=== PATIENT | female | born 1970 | race Two or more races ===

== ENCOUNTER 2016-12-24 14:13 | Inpatient (IN) | payer MEDICAID ==
[2016-12-24 14:13] VITALS: BMI 21.9
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
[2016-12-24] MEDS ORDERED: Vancomycin 1 g Inj ONE (15:51)
[2016-12-24] MEDS ORDERED: Piperacillin/Tazobact 4.5 GM in Sodium Chloride 0.9% 100 ML IVPB ONE (16:00)
[2016-12-24 16:01] LABS: ALB/GLOB RATIO 1.2 (1.0-2.1); ALKALINE PHOSPHATASE 94 U/L (38-126); ALT/SGPT 27 U/L (9-52); AST/SGOT 28 U/L (14-36); BILIRUBIN,TOTAL 0.5 mg/dl (0.2-1.3); BLOOD UREA NITROGEN 12 mg/dl (7-17); CALCIUM 9.5 mg/dL (8.4-10.2); CARBON DIOXIDE 19 mmol/L (22-30); CHLORIDE 106 mmol/L (98-107); GFR AFRICAN-AMERICAN > 60; GLUCOSE,RANDOM 168 mg/dL (65-105); POTASSIUM 3.7 MMOL/L (3.6-5.0); SODIUM 143 mmol/l (132-148); TOTAL PROTEIN 8.1 G/DL (6.3-8.2)
[2016-12-24 16:03] LABS: VENOUS BLOOD GAS BASE EXCESS 0.3 mmol/L (0.0-2.0); VENOUS BLOOD GAS PCO2 45 mmHg (40-60); VENOUS BLOOD PH 7.37 (7.32-7.43)
[2016-12-24 16:32] LABS: BASO % 0.4 % (0.0-2.0); EOS # 0.2 K/uL (0.0-0.7); EOS % 1.6 % (0.0-4.0); HEMATOCRIT 35.7 % (34.0-47.0); LYMPH # 1.6 K/uL (1.0-4.3); LYMPH % 16.9 % (20.0-40.0); MEAN CELL VOLUME 82.5 fl (81.0-99.0); MEAN CORPUSCULAR HGB CONC 31.5 g/dL (33.0-37.0); MEAN PLATELET VOLUME 9.7 fl (7.2-11.7); NEUT # 6.8 K/uL (1.8-7.0); NEUT % 71.1 % (50.0-75.0); NRBC % 0.1 % (0.0-0.0); RED CELL DISTRIBUTION WIDTH 17.3 % (11.5-14.5); WHITE BLOOD COUNT 9.5 K/uL (4.8-10.8)
[2016-12-24] MEDS ORDERED: Sodium Chloride 0.9% 1,000 ML IV STA (17:13)
--- NOTE | 2016-12-24 18:15 | RAD ---
HISTORY: r/o infiltrate COMPARISON: None available. TECHNIQUE: Chest, one view. FINDINGS: Examination limited by habitus. LUNGS: No focal consolidation. Please note that chest x-ray has limited sensitivity for the detection of pulmonary masses. PLEURA: No significant pleural effusion identified. No definite pneumothorax . CARDIOVASCULAR: Heart size appears within normal limits. OSSEOUS STRUCTURES: No acute osseous abnormality identified. VISUALIZED UPPER ABDOMEN: Unremarkable. OTHER FINDINGS: None. IMPRESSION: No acute findings.
[2016-12-24 22:05] LABS: PARTIAL THROMBOPLASTIN TIME 24.6 Seconds (25.6-37.1)
[2016-12-24] MEDS: Insulin Regular 100 units/ml SC SCH (23:15)
[2016-12-25] MEDS: Piperacillin/Tazobact 4.5 GM in Sodium Chloride 0.9% 100 ML IVPB SCH ×3 (00:48→16:30)
[2016-12-25] MEDS ORDERED: HYDROmorphone 1 mg/ml ISec IVP PRN (00:55)
[2016-12-25] MEDS: HYDROmorphone 0.5 mg/0.5 ml ISec IVP PRN ×2 (01:11→23:01)
[2016-12-25] MEDS ORDERED: Dextrose 5%/0.45% NS 1,000 ML IV SCH (06:00)
[2016-12-25] MEDS: Insulin Regular 100 units/ml SC SCH ×4 (06:08→22:46)
[2016-12-25 06:34] LABS: HEMATOCRIT 31.7 % (34.0-47.0); MEAN CELL VOLUME 81.7 fl (81.0-99.0); MEAN CORPUSCULAR HEMOGLOBIN 25.8 pg (27.0-31.0); MEAN CORPUSCULAR HGB CONC 31.6 g/dL (33.0-37.0); RED CELL DISTRIBUTION WIDTH 17.1 % (11.5-14.5); WHITE BLOOD COUNT 6.3 K/uL (4.8-10.8)
[2016-12-25 06:36] LABS: ALB/GLOB RATIO 1.1 (1.0-2.1); ALKALINE PHOSPHATASE 72 U/L (38-126); ALT/SGPT 25 U/L (9-52); AST/SGOT 22 U/L (14-36); BILIRUBIN,TOTAL 0.6 mg/dl (0.2-1.3); BLOOD UREA NITROGEN 13 mg/dl (7-17); CALCIUM 8.9 mg/dL (8.4-10.2); CARBON DIOXIDE 21 mmol/L (22-30); CHLORIDE 108 mmol/L (98-107); CHOLESTEROL 113 mg/dL (0-199); GFR AFRICAN-AMERICAN > 60; GLUCOSE,RANDOM 133 mg/dL (65-105); POTASSIUM 4.1 MMOL/L (3.6-5.0); SODIUM 143 mmol/l (132-148); TOTAL PROTEIN 6.7 G/DL (6.3-8.2)
[2016-12-25 07:04] LABS: THYROID STIMULATING HORMONE 2.01 mIU/ML (0.46-4.68)
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
--- NOTE | 2016-12-25 07:44 | CP.PCM.PN ---
Subjective - Date & Time of Evaluation Date of Evaluation: 12/25/16 Time of Evaluation: 07:39 - Subjective Subjective: Podiatry Progress Note - Dr. Ibarra 46 year old female patient seen at bedside for pre-operative evaluation of bilateral lower extremity wound debridement with incision and drainage by Dr. Ibarra today. Patient reports decreased pain to her legs today, well-controlled by pain medication. Patient is aware she is to go to the OR this AM. NPO status confirmed. Patient denies N/V/F/D/C/SOB. Offers no other pedal complaints at this time. Objective - Vital Signs/Intake and Output Vital Signs (last 24 hours): Temp Pulse Resp BP Pulse Ox 97.8 F 83 19 99/58 L 100 12/25/16 00:51 12/25/16 00:51 12/25/16 00:51 12/25/16 00:51 12/25/16 00:51 - Medications Medications: Current Medications Hydromorphone HCl (Dilaudid) 1 mg IVP Q4 PRN PRN Reason: pain 1-10 Last Admin: 12/25/16 01:11 Dose: 1 mg Vancomycin HCl 1 gm/ Sodium (Chloride) 250 mls @ 166.667 mls/hr IVPB Q12 GRANT PRN Reason: Protocol Piperacillin Sod/Tazobactam (Sod 4.5 gm/ Sodium Chloride) 100 mls @ 100 mls/hr IVPB Q8 GRANT PRN Reason: Protocol Last Admin: 12/25/16 00:48 Dose: 100 mls/hr Dextrose/Sodium Chloride (Dextrose 5%-0.45% Ns 500 Ml) 1,000 mls @ 80 mls/hr IV .[id number] GRANT Stop: 12/26/16 00:56 Last Admin: 12/25/16 06:08 Dose: 80 mls/hr Ibuprofen (Motrin Tab) 600 mg PO Q8H PRN PRN Reason: Pain, moderate (4-7) Influenza Virus Vaccine (Afluria (Pf)(18yr & Older)) 0.5 ml IM .ONCE ONE Stop: 12/25/16 09:01 Insulin Human Regular (Humulin R) 0 units SC ACCU-CHECK GRANT PRN Reason: Protocol Last Admin: 12/25/16 06:08 Dose: Not Given Pantoprazole Sodium (Protonix Inj) 40 mg IVP DAILY GRANT - Labs Labs: 12/25/16 05:20 12/25/16 05:20 PT 13.5 Seconds (9.8-13.1) H 12/24/16 21:45 INR 1.2 (0.9-1.2) 12/24/16 21:45 APTT 24.6 Seconds (25.6-37.1) L 12/24/16 21:45 - Constitutional Appears: Well, Non-toxic, No Acute Distress - Extremities Exam Additional comments: Dressing to bilateral lower extremities appear clean/dry/intact with no strikethrough noted. - Neurological Exam Neurological Exam: Alert, Awake, Oriented x3 - Psychiatric Exam Psychiatric exam: Normal Affect, Normal Mood Assessment and Plan - Assessment and Plan (Free Text) Assessment: 46 year old female PMHx DM with bilateral leg ulcerations and abscesses Plan: Patient seen and examined at bedside Discussed with attending, Dr. Ibarra Labs and vitals reviewed = WBC 6.3, afebrile NPO status was confirmed Pt has exhausted all conservative treatment at this time and is opting for surgical intervention Pt was explained procedure and post-operative course All pt's questions were answered to satisfaction No guarantees were made Pt understands all risks, benefits and complications of procedure Podiatry will continue to follow patient while in house
[2016-12-25] MEDS ORDERED: Bupivacaine 0.5% Inj(30mL) IJ ONE (07:57)
[2016-12-25] MEDS ORDERED: Lidocaine 1% Inj (20ml) IJ ONE (07:57)
[2016-12-25] MEDS ORDERED: ceFAZolin 1 GM in Sodium Chloride 0.9% 100 ML IVPB ONE (07:57)
--- NOTE | 2016-12-25 08:58 | RAD ---
PROCEDURE: Radiographs of the right tibia and fibula. HISTORY: soft tissue infection COMPARISON: None available. TECHNIQUE: Frontal and lateral views obtained. FINDINGS: BONES: No fracture or destructive lesion. JOINT SPACES: Unremarkable. OTHER FINDINGS: Calf and lower extremity edema, diffuse also identified overlying the plantar aspect of the visualized foot. IMPRESSION: Soft tissue swelling without acute articular or osseous abnormality.
[2016-12-25] MEDS ORDERED: Bupivacaine 0.5% Inj(30mL) ONE (09:00)
[2016-12-25] MEDS ORDERED: Lidocaine 1% Inj (20ml) ONE (09:00)
[2016-12-25] MEDS ORDERED: Influenza Vaccine 18yr & older 0.5 ML/45 MCG SYR IM ONE (09:00)
--- NOTE | 2016-12-25 09:12 | CP.PCM.PCO ---
Progress - Time Time: 09:11 - Re-Evaluation Re-evaluation Note: 12/25/16 09:11 Patient seen and examined at bedside. Denies any chest pain , SOB, dizziness. Denies any cardiac history. Patient is resting comfortably. - Labs and imaging have been reviewed, patient is low risk for I and D and wound debridement of bilateral legs. Gen :NAD CVS: S1s2 heard no S3 S$ no MRG Resp: CTAB , no W/R/R PLASTER MIXER: motor and sensory grossly intact FH: Not significant 12/25/16 09:12
[2016-12-25] MEDS ORDERED: Sodium Chloride 0.9% 250 ML IV ONE (09:35)
[2016-12-25] MEDS ORDERED: Lactated Ringer's 1,000 ML IV ONE (09:35)
[2016-12-25] MEDS ORDERED: Propofol 10 mg/ml Inj (20 ML) ONE (09:47)
--- NOTE | 2016-12-25 09:53 | RAD ---
PROCEDURE: Radiographs of the left tibia and fibula. HISTORY: soft tissue infection COMPARISON: December 24, 2016. . TECHNIQUE: Frontal and lateral views obtained. FINDINGS: BONES: No fracture or destructive lesion. JOINT SPACES: Degenerative changes incompletely visualize left knee. OTHER FINDINGS: Soft tissue swelling about calf primarily medially. No underlying osseous abnormalities. IMPRESSION: Soft tissue swelling without acute articular or osseous abnormality.
[2016-12-25] MEDS ORDERED: Dexamethasone 4 mg/1 ml ONE (10:22)
--- NOTE | 2016-12-25 10:58 | PCM.SURG1 ---
Surgeon's Initial Post Op Note - Surgeon's Notes Surgeon: Dr. Ibarra Knife Glazer: Mahad Wilson PGY1 Type of Anesthesia: General LMA Anesthesia Administered By: Dr. Banuelos Pre-Operative Diagnosis: Bilateral leg wounds and abscesses Operative Findings: See operative report. materials: 03/19" plain packing. injectables: none Post-Operative Diagnosis: Same as above Operation Performed: Bilateral leg wound debridement with incision and drainage , excisional biopsy Specimen/Specimens Removed: pathology: 1) biopsy skin ulcer right lower leg, 2) biopsy skin ulcer left leg, 3) abscess right leg, 4) abscess right leg, 5) abscess L leg, 6) abscess L leg Estimated Blood Loss: EBL {In ML}: 7 Blood Products Given: N/A Drains Used: No Drains Post-Op Condition: Good Date of Surgery/Procedure: 12/25/16 Time of Surgery/Procedure: 10:00
[2016-12-25] MEDS ORDERED: Oxycodone/Acetaminophen 5/325 mg Tab PO PRN (11:00)
[2016-12-25] MEDS ORDERED: HYDROmorphone 0.5 mg/0.5 ml ISec ONE (11:03)
[2016-12-25] MEDS ORDERED: HYDROmorphone 0.5 mg/0.5 ml ISec IVP PRN (11:05)
--- NOTE | 2016-12-25 11:05 | RAD ---
PROCEDURE: Radiographs of the Left Forearm HISTORY: soft tissue infection COMPARISON: None available. TECHNIQUE: Frontal and lateral views obtained. FINDINGS: BONES: No fracture or destructive lesion. JOINT SPACES: Unremarkable. OTHER FINDINGS: None. IMPRESSION: Unremarkable radiographs of the left forearm.
--- NOTE | 2016-12-25 12:01 | CARD ---
APPROVED REPORT EKG Measurement Heart [id number] <Conclusion> Normal sinus rhythm Normal ECG
--- NOTE | 2016-12-25 18:30 | CP.PCM.HP ---
History of Present Illness - History of Present Illness History of Present Illness: 46 YO F w/ PMH of DM and upper and lower extremity wounds since 2016. Patient was sent to the ER by Dr. Rico ([facility]) for evaluation of wounds with worsening pin and drainage x 1 week. PMH: DM, HTN F/H:Denies Allergies : Denies Present on Admission - Present on Admission Any Indicators Present on Admission: Yes Past Patient History - Past Medical History & Family History Past Medical History?: Yes - Past Social History Smoking Status: Never Smoked - CARDIAC Hx Cardiac Disorders: No Hx Hypertension: No (States she doesnt have HTN) - PULMONARY Hx Respiratory Disorders: No - NEUROLOGICAL Hx Neurological Disorder: No - HEENT Hx HEENT Problems: Yes Other/Comment: [place] - RENAL Hx Chronic Kidney Disease: No - ENDOCRINE/METABOLIC Hx Endocrine Disorders: Yes Hx Diabetes Mellitus Type 2: Yes - HEMATOLOGICAL/ONCOLOGICAL Hx Blood Disorders: No - INTEGUMENTARY Hx Dermatological Problems: Yes Other/Comment: Chronic wounds to upper and lower extremities - MUSCULOSKELETAL/RHEUMATOLOGICAL Hx Musculoskeletal Disorders: No Hx Falls: No - GASTROINTESTINAL Hx Gastrointestinal Disorders: No - GENITOURINARY/GYNECOLOGICAL Hx Genitourinary Disorders: No - PSYCHIATRIC Hx Psychophysiologic Disorder: No Hx Substance Use: No - SURGICAL HISTORY Hx Surgeries: Yes Other/Comment: [place] - ANESTHESIA Hx Anesthesia: Yes Hx Anesthesia Reactions: No Hx Malignant Hyperthermia: No Meds Allergies/Adverse Reactions: Allergies Allergy/AdvReac Type Severity Reaction Status Date / Time No Known Allergies Allergy Verified 12/24/16 14:18 Physical Exam - Constitutional Appears: No Acute Distress - Head Exam Head Exam: NORMAL INSPECTION - Eye Exam Eye Exam: Normal appearance - ENT Exam ENT Exam: Mucous Membranes Moist - Respiratory Exam Respiratory Exam: Clear to Auscultation Bilateral, NORMAL BREATHING PATTERN - Cardiovascular Exam Cardiovascular Exam: REGULAR RHYTHM, +S1, +S2 - GI/Abdominal Exam GI & Abdominal Exam: Normal Bowel Sounds, Soft. absent: Tenderness - Extremities Exam Additional comments: LUE: 5 cm open drainage ulveration LLE: Ulceration to medial fib. - - Neurological Exam Neurological exam: Alert, CN II-XII Intact, Normal Gait Results - Vital Signs Recent Vital Signs: Last Vital Signs Temp 97.7 F 12/25/16 15:30 Pulse 77 12/25/16 15:30 Resp 18 12/25/16 15:30 BP 103/65 12/25/16 15:30 Pulse Ox 98 12/25/16 15:30 - Labs Result Diagrams: 12/25/16 05:20 12/25/16 05:20 Labs: Laboratory Results - last 24 hr 12/24/16 12/24/16 12/25/16 21:22 21:45 05:20 WBC 6.3 RBC 3.87 Hgb 10.0 L Hct 31.7 L MCV 81.7 MCH 25.8 L MCHC 31.6 L RDW 17.1 H Plt Count 198 ESR 53 H PT 13.5 H INR 1.2 APTT 24.6 L Sodium Potassium Chloride Carbon Dioxide Anion Gap BUN Creatinine Est GFR ( Amer) Est GFR (Non-Af Amer) POC Glucose (mg/dL) 211 H Random Glucose Hemoglobin A1c Calcium Total Bilirubin AST ALT Alkaline Phosphatase Total Protein Albumin Globulin Albumin/Globulin Ratio Triglycerides Cholesterol LDL Cholesterol Direct HDL Cholesterol TSH 3rd Generation 12/25/16 12/25/16 12/25/16 05:20 05:20 05:49 WBC RBC Hgb Hct MCV MCH MCHC RDW Plt Count ESR PT INR APTT Sodium 143 Potassium 4.1 Chloride 108 H Carbon Dioxide 21 L Anion Gap 18 BUN 13 Creatinine 0.7 Est GFR ( Amer) > 60 Est GFR (Non-Af Amer) > 60 POC Glucose (mg/dL) 140 H Random Glucose 133 H Hemoglobin A1c 8.9 H Calcium 8.9 Total Bilirubin 0.6 AST 22 ALT 25 Alkaline Phosphatase 72 Total Protein 6.7 Albumin 3.5 Globulin 3.2 Albumin/Globulin Ratio 1.1 Triglycerides 83 Cholesterol 113 LDL Cholesterol Direct 56 HDL Cholesterol 32 TSH 3rd Generation 2.01 12/25/16 12/25/16 11:04 16:03 WBC RBC Hgb Hct MCV MCH MCHC RDW Plt Count ESR PT INR APTT Sodium Potassium Chloride Carbon Dioxide Anion Gap BUN Creatinine Est GFR ( Amer) Est GFR (Non-Af Amer) POC Glucose (mg/dL) 116 H 269 H Random Glucose Hemoglobin A1c Calcium Total Bilirubin AST ALT Alkaline Phosphatase Total Protein Albumin Globulin Albumin/Globulin Ratio Triglycerides Cholesterol LDL Cholesterol Direct HDL Cholesterol TSH 3rd Generation Assessment & Plan - Assessment and Plan (Free Text) Assessment: 1) B/L leg ulceration and abscess - Patient has failed conservative management - Patient scheduled for surgery this morning: Wound debridement - ID on board - F/U with lower extremity arterial doppler
--- NOTE | 2016-12-25 18:35 | CP.PCM.CON ---
History of Present Illness - History of Present Illness History of Present Illness: 46 YO F w/ PMH of DM and upper and lower extremity wounds since 2016. Patient was sent to the ER by Dr. Rico ([facility]) for evaluation of wounds with worsening pin and drainage x 1 week. PMH: DM, HTN F/H:Denies Allergies : Denies Review of Systems - Constitutional Constitutional: As Per HPI - EENT Eyes: absent: As Per HPI, Blind Spots, Blurred Vision, Change in Vision, Decreased Night Vision, Diplopia, Discharge, Dry Eye, Exophthalmos, Floaters, Irritation, Itchy Eyes, Loss of Peripheral Vision, Pain, Photophobia, Requires Corrective Lenses, Sees Flashes, Spots in Vision, Tunnel Vision, Other Visual Disturbances, Loss of Vision, Other Ears: absent: As Per HPI, Decreased Hearing, Ear Discharge, Ear Pain, Tinnitus, Abnormal Hearing, Disequilibrium, Dizziness, Other Nose/Mouth/Throat: absent: As Per HPI, Epistaxis, Nasal Congestion, Nasal Discharge, Nasal Obstruction, Nasal Trauma, Nose Pain, Post Nasal Drip, Sinus Pain, Sinus Pressure, Bleeding Gums, Change in Voice, Dental Pain, Dry Mouth, Dysphagia, Halitosis, Hoarsness, Lip Swelling, Mouth Lesions, Mouth Pain, Odynophagia, Sore Throat, Throat Swelling, Tongue Swelling, Facial Pain, Neck Pain, Neck Mass, Other - Breasts Breasts: absent: As Per HPI, Change in Shape, Mass, Pain, Nipple Discharge, Nipple Inversion, Skin Changes, Swelling, Other - Cardiovascular Cardiovascular: absent: As Per HPI, Acrocyanosis, Chest Pain, Chest Pain at Rest , Chest Pain with Activity, Claudication, Diaphoresis, Dyspnea, Dyspnea on Exertion, Edema, Irregular Heart Rhythm, Pain Radiating to Arm/Neck/Jaw, Leg Edema, Leg Ulcers, Lightheadedness, Orthopnea, Palpitations, Paroxysmal Nocturnal Dyspnea, Pedal Edema, Radiating Pain, Rapid Heart Rate, Slow Heart Rate, Syncope, Other - Respiratory Respiratory: absent: As Per HPI, Cough, Dyspnea, Hemoptysis, Dyspnea on Exertion , Wheezing, Snoring, Stridor, Pain on Inspiration, Chest Congestion, Excessive Mucous Production, Change in Mucous Color, Pain with Coughing, Other - Gastrointestinal Gastrointestinal: absent: As Per HPI, Abdominal Pain, Belching, Bloating, Change in Bowel Habits, Change in Stool Character, Coffee Ground Emesis, Constipation, Cramping, Diarrhea, Dyspepsia, Dysphagia, Early Satiety, Excessive Flatus, Fecal Incontinence, Heartburn, Hematemesis, Hematochezia, Loose Stools, Melena, Nausea, Odynophagia, Temesmus, Vomiting, Other - Genitourinary Genitourinary: absent: As Per HPI, Change in Urinary Stream, Difficulty Urinating, Dysuria, Flank Pain, Hematuria, Pyuria, Nocturia, Urinary Incontinence, Urinary Frequency, Urinary Hesitance, Urinary Urgency, Voiding Freq/Small Amts, Freq UTI, Hx Renal/Bladder Calculi, Hx /Renal Surgery, Bladder Distension, Other - Reproductive: Female Reproductive:Female: absent: As Per HPI, Amenorrhea, Amenorrhea/ Control, Currently Menstual, Cycle <21 Days, Cycle >35 Days, Cycle Variable, Menses 1-7 Days, Menses >/= 8 Days, Menses Variable, Cycle > 4 Weeks Between, No Menses for 6 Months, Heavy Menses, Light Menses, Normal Menses, Spotting Between Cycles , S/P Hysterectomy, Menopausal, Post Menopausal, Premenarche, Abnormal Vaginal Bleeding, Dysmenorrhea, Dyspareunia, Genital Lesions, Genital Pruritis, Pelvic Pain, Prolapse Symptoms, Sexual Dysfunction, Vaginal Discharge, Vaginal Dryness , Vaginal Odor, Vaginal Pruritis, Other - Menstruation Menstruation: absent: As Per HPI, Amenorrhea, Amenorrhea/ Control, Currently Menstual, Cycle <21 Days, Cycle >35 Days, Cycle Variable, Menses 1-7 Days, Menses >/= 8 Days, Menses Variable, Cycle > 4 Weeks Between, No Menses for 6 Months, Heavy Menses, Light Menses, Normal Menses, Spotting Between Cycles , S/P Hysterectomy, Menopausal, Post Menopausal, Premenarche, Abnormal Vaginal Bleeding, Dysmenorrhea, Other - Musculoskeletal Musculoskeletal: As Per HPI - Integumentary Integumentary: As Per HPI - Neurological Neurological: absent: As Per HPI, Abnormal Gait, Abnormal Hearing, Abnormal Movements, Abnormal Speech, Behavioral Changes, Burning Sensations, Confusion, Convulsions, Disequilibrium, Dizziness, Numbness, Focal Weakness, Frequent Falls , Headaches, Lack of Coordination, Loss of Vision, Memory Loss, Paresthesias, Radicular Pain, Restless Legs, Sensory Deficit, Syncope, Tingling, Tremor, Vertigo, Weakness, Other Visual Disturbances, Other - Psychiatric Psychiatric: absent: As Per HPI, Abnormal Sleep Pattern, Anhedonia, Anxiety, Auditory Hallucinations, Behavioral Changes, Change in Appetite, Change in Libido, Confusion, Depression, Difficulty Concentrating, Hallucinations, Homicidal Ideation, Hopelessness, Irritability, Memory Loss, Mood Swings, Panic Attacks, Paranoia, Suicidal Ideation, Visual Hallucinations, Tactile Hallucinations, Other - Endocrine Endocrine: absent: As Per HPI, Change in Body Appearance, Change in Libido, Cold Intolorance, Deepening of Voice, Excessive Sweating, Fatigue, Flushing, Heat Intolorance, Increase in Ring/Shoe/Hat Size, Palpitations, Polydipsia, Polyphagia, Polyuria, Other - Hematologic/Lymphatic Hematologic: absent: As Per HPI, Easy Bleeding, Easy Bruising, Lymphadenopathy, Other Past Patient History - Past Medical History & Family History Past Medical History?: Yes - Past Social History Smoking Status: Never Smoked - CARDIAC Hx Cardiac Disorders: No Hx Hypertension: No (States she doesnt have HTN) - PULMONARY Hx Respiratory Disorders: No - NEUROLOGICAL Hx Neurological Disorder: No - HEENT Hx HEENT Problems: Yes Other/Comment: [place] - RENAL Hx Chronic Kidney Disease: No - ENDOCRINE/METABOLIC Hx Endocrine Disorders: Yes Hx Diabetes Mellitus Type 2: Yes - HEMATOLOGICAL/ONCOLOGICAL Hx Blood Disorders: No - INTEGUMENTARY Hx Dermatological Problems: Yes Other/Comment: Chronic wounds to upper and lower extremities - MUSCULOSKELETAL/RHEUMATOLOGICAL Hx Musculoskeletal Disorders: No Hx Falls: No - GASTROINTESTINAL Hx Gastrointestinal Disorders: No - GENITOURINARY/GYNECOLOGICAL Hx Genitourinary Disorders: No - PSYCHIATRIC Hx Psychophysiologic Disorder: No Hx Substance Use: No - SURGICAL HISTORY Hx Surgeries: Yes Other/Comment: Eye surgery [place] - ANESTHESIA Hx Anesthesia: Yes Hx Anesthesia Reactions: No Hx Malignant Hyperthermia: No Meds Allergies/Adverse Reactions: Allergies Allergy/AdvReac Type Severity Reaction Status Date / Time No Known Allergies Allergy Verified 12/24/16 14:18 - Medications Medications: Current Medications Hydromorphone HCl (Dilaudid) 1 mg IVP Q4 PRN PRN Reason: pain 1-10 Last Admin: 12/25/16 01:11 Dose: 1 mg Vancomycin HCl 1 gm/ Sodium (Chloride) 250 mls @ 166.667 mls/hr IVPB Q12 [facility] PRN Reason: Protocol Last Admin: 12/25/16 09:19 Dose: 166.667 mls/hr Piperacillin Sod/Tazobactam (Sod 4.5 gm/ Sodium Chloride) 100 mls @ 100 mls/hr IVPB Q8 [facility] PRN Reason: Protocol Last Admin: 12/25/16 16:30 Dose: 100 mls/hr Dextrose/Sodium Chloride (Dextrose 5%-0.45% Ns 500 Ml) 1,000 mls @ 80 mls/hr IV .[id number] [facility] Stop: 12/26/16 00:56 Last Admin: 12/25/16 06:08 Dose: 80 mls/hr Dextrose (Dextrose 5% In Water) 500 mls @ 0 mls/hr IV .Q0M [facility] PRN Reason: Per Protocol Stop: 12/26/16 07:58 Lactated Ringer's (Lactated Ringer's) 1,000 mls @ 125 mls/hr IV .Q8H [facility] Ibuprofen (Motrin Tab) 600 mg PO Q8H PRN PRN Reason: Pain, moderate (4-7) Ibuprofen (Motrin Tab) 800 mg PO Q8 PRN PRN Reason: Pain, Mild (1-3) Insulin Human Regular (Humulin R) 0 units SC ACCU-CHECK [facility] PRN Reason: Protocol Last Admin: 12/25/16 16:35 Dose: 6 units Oxycodone/Acetaminophen (Percocet 5/325 Mg Tab) 1 tab PO Q6 PRN PRN Reason: Pain, severe (8-10) Stop: 12/28/16 11:01 Pantoprazole Sodium (Protonix Inj) 40 mg IVP DAILY [facility] Last Admin: 12/25/16 09:20 Dose: 40 mg Physical Exam - Constitutional Appears: Non-toxic, Chronically Ill - Head Exam Head Exam: NORMOCEPHALIC - Eye Exam Eye Exam: PERRL - ENT Exam ENT Exam: Mucous Membranes Dry - Neck Exam Neck exam: Negative for: Lymphadenopathy - Respiratory Exam Respiratory Exam: Decreased Breath Sounds, Clear to Auscultation Bilateral - Cardiovascular Exam Cardiovascular Exam: REGULAR RHYTHM, +S1, +S2 - GI/Abdominal Exam GI & Abdominal Exam: Diminished Bowel Sounds - Rectal Exam Rectal Exam: Deferred - Exam Exam: NORMAL INSPECTION - Extremities Exam Extremities exam: Negative for: pedal edema - Back Exam Back exam: absent: CVA tenderness (L), CVA tenderness (R) - Neurological Exam Neurological exam: Alert, CN II-XII Intact, Oriented x3, Reflexes Normal - Psychiatric Exam Psychiatric exam: Normal Affect - Skin Skin Exam: Dry Additional comments: several large flat circular lesions on upper / lower extremities Results - Vital Signs Recent Vital Signs: Last Vital Signs Temp 97.7 F 12/25/16 15:30 Pulse 77 12/25/16 15:30 Resp 18 12/25/16 15:30 BP 103/65 12/25/16 15:30 Pulse Ox 98 12/25/16 15:30 - Labs Result Diagrams: 12/26/16 05:25 12/26/16 05:25 Labs: Laboratory Results - last 24 hr 12/24/16 12/24/16 12/25/16 21:22 21:45 05:20 WBC 6.3 RBC 3.87 Hgb 10.0 L Hct 31.7 L MCV 81.7 MCH 25.8 L MCHC 31.6 L RDW 17.1 H Plt Count 198 ESR 53 H PT 13.5 H INR 1.2 APTT 24.6 L Sodium Potassium Chloride Carbon Dioxide Anion Gap BUN Creatinine Est GFR ( Amer) Est GFR (Non-Af Amer) POC Glucose (mg/dL) 211 H Random Glucose Hemoglobin A1c Calcium Total Bilirubin AST ALT Alkaline Phosphatase Total Protein Albumin Globulin Albumin/Globulin Ratio Triglycerides Cholesterol LDL Cholesterol Direct HDL Cholesterol TSH 3rd Generation 12/25/16 12/25/16 12/25/16 05:20 05:20 05:49 WBC RBC Hgb Hct MCV MCH MCHC RDW Plt Count ESR PT INR APTT Sodium 143 Potassium 4.1 Chloride 108 H Carbon Dioxide 21 L Anion Gap 18 BUN 13 Creatinine 0.7 Est GFR ( Amer) > 60 Est GFR (Non-Af Amer) > 60 POC Glucose (mg/dL) 140 H Random Glucose 133 H Hemoglobin A1c 8.9 H Calcium 8.9 Total Bilirubin 0.6 AST 22 ALT 25 Alkaline Phosphatase 72 Total Protein 6.7 Albumin 3.5 Globulin 3.2 Albumin/Globulin Ratio 1.1 Triglycerides 83 Cholesterol 113 LDL Cholesterol Direct 56 HDL Cholesterol 32 TSH 3rd Generation 2.01 10/12/17 10/12/17 11:04 16:03 WBC RBC Hgb Hct MCV MCH MCHC RDW Plt Count ESR PT INR APTT Sodium Potassium Chloride Carbon Dioxide Anion Gap BUN Creatinine Est GFR ( Amer) Est GFR (Non-Af Amer) POC Glucose (mg/dL) 116 H 269 H Random Glucose Hemoglobin A1c Calcium Total Bilirubin AST ALT Alkaline Phosphatase Total Protein Albumin Globulin Albumin/Globulin Ratio Triglycerides Cholesterol LDL Cholesterol Direct HDL Cholesterol TSH 3rd Generation Assessment & Plan (1) Abscess of left lower extremity Status: Acute (2) Cellulitis Status: Acute - Assessment and Plan (Free Text) Assessment: 46 yo [place] with multiple skin lesions etiology to be determined needs skin bx await HIV screen consider screen for Cutaneous T cell lymphoma / HTLV I II
[2016-12-25] MEDS: Lactated Ringer's 1,000 ML IV SCH (20:35)
[2016-12-26] MEDS: Piperacillin/Tazobact 4.5 GM in Sodium Chloride 0.9% 100 ML IVPB SCH ×3 (00:06→20:02)
[2016-12-26] MEDS: Lactated Ringer's 1,000 ML IV SCH (03:41)
--- NOTE | 2016-12-26 05:27 | CP.PCM.CON ---
History of Present Illness - History of Present Illness History of Present Illness: General Surgery Consult Re: LUE ulceration and abscess HPI: 46F presented to ED for worsening extremity ulcerations/wounds with new swelling, pain and drainage x 1 week. Podiatry had been following as outpt. Pt says ulcers never go away they just spread. Present since 2016. Says they start as a blister and after erupting in 4-5 days they can spread. She currently notes an area on the upper L arm that she thinks is getting ready to form another blister. No other complaints. Pt is worried there may be a bug or allergy in her home that is causing this. Denies any family history of cancers or autoimmune diseases. Patient stated she has been compliant with diabetes medications and has been taking Doxycycline for the last week. PMH: HTN, DM, skin ulcerations on extremities PSH: LE Debridement, L knee surgery, SH: No tobacco or drug use. Occasional EtOH All: NKDA Meds: See MAR Review of Systems - Review of Systems All systems: reviewed and no additional remarkable complaints except (as per HPI ) Past Patient History - Past Medical History & Family History Past Medical History?: Yes - Past Social History Smoking Status: Never Smoked - CARDIAC Hx Cardiac Disorders: No Hx Hypertension: No (States she doesnt have HTN) - PULMONARY Hx Respiratory Disorders: No - NEUROLOGICAL Hx Neurological Disorder: No - HEENT Hx HEENT Problems: Yes Other/Comment: [place] - RENAL Hx Chronic Kidney Disease: No - ENDOCRINE/METABOLIC Hx Endocrine Disorders: Yes Hx Diabetes Mellitus Type 2: Yes - HEMATOLOGICAL/ONCOLOGICAL Hx Blood Disorders: No - INTEGUMENTARY Hx Dermatological Problems: Yes Other/Comment: Chronic wounds to upper and lower extremities - MUSCULOSKELETAL/RHEUMATOLOGICAL Hx Musculoskeletal Disorders: No Hx Falls: No - GASTROINTESTINAL Hx Gastrointestinal Disorders: No - GENITOURINARY/GYNECOLOGICAL Hx Genitourinary Disorders: No - PSYCHIATRIC Hx Psychophysiologic Disorder: No Hx Substance Use: No - SURGICAL HISTORY Hx Surgeries: Yes Other/Comment: [place] - ANESTHESIA Hx Anesthesia: Yes Hx Anesthesia Reactions: No Hx Malignant Hyperthermia: No Meds Allergies/Adverse Reactions: Allergies Allergy/AdvReac Type Severity Reaction Status Date / Time No Known Allergies Allergy Verified 12/24/16 14:18 - Medications Medications: Current Medications Hydromorphone HCl (Dilaudid) 1 mg IVP Q4 PRN PRN Reason: pain 1-10 Last Admin: 12/25/16 23:01 Dose: 1 mg Vancomycin HCl 1 gm/ Sodium (Chloride) 250 mls @ 166.667 mls/hr IVPB Q12 [facility] PRN Reason: Protocol Last Admin: 12/25/16 20:31 Dose: 166.667 mls/hr Piperacillin Sod/Tazobactam (Sod 4.5 gm/ Sodium Chloride) 100 mls @ 100 mls/hr IVPB Q8 [facility] PRN Reason: Protocol Last Admin: 12/26/16 00:06 Dose: 100 mls/hr Dextrose (Dextrose 5% In Water) 500 mls @ 0 mls/hr IV .Q0M [facility] PRN Reason: Per Protocol Stop: 12/26/16 07:58 Lactated Ringer's (Lactated Ringer's) 1,000 mls @ 125 mls/hr IV .Q8H [facility] Last Admin: 12/26/16 03:41 Dose: Not Given Ibuprofen (Motrin Tab) 600 mg PO Q8H PRN PRN Reason: Pain, moderate (4-7) Ibuprofen (Motrin Tab) 800 mg PO Q8 PRN PRN Reason: Pain, Mild (1-3) Insulin Human Regular (Humulin R) 0 units SC ACCU-CHECK [facility] PRN Reason: Protocol Last Admin: 12/25/16 22:46 Dose: Not Given Oxycodone/Acetaminophen (Percocet 5/325 Mg Tab) 1 tab PO Q6 PRN PRN Reason: Pain, severe (8-10) Stop: 12/28/16 11:01 Pantoprazole Sodium (Protonix Inj) 40 mg IVP DAILY [facility] Last Admin: 12/25/16 09:20 Dose: 40 mg Physical Exam - Constitutional Appears: Non-toxic, No Acute Distress - Head Exam Head Exam: ATRAUMATIC, NORMOCEPHALIC - Eye Exam Eye Exam: EOMI. absent: Scleral icterus - ENT Exam ENT Exam: Mucous Membranes Moist Additional comments: trachea midline - Neck Exam Neck exam: Positive for: Full Rom - Respiratory Exam Respiratory Exam: NORMAL BREATHING PATTERN. absent: Respiratory Distress - Cardiovascular Exam Cardiovascular Exam: RRR, +S1, +S2 - GI/Abdominal Exam GI & Abdominal Exam: Soft. absent: Distended, Tenderness - Rectal Exam Rectal Exam: Deferred - Extremities Exam Additional comments: Podiatry post op dressings in place on B/L LE LUE with forearm bleeding, raw ulceration with what appears to be rolled edges. TTP. No fluctuance noted, induration at base. On lateral upper arm, there is a 1cm bump with darkened skin and TTP. pt notes this to be an early sign that another ulceration is going to erupt in that area. - Back Exam Back exam: absent: CVA tenderness (L), CVA tenderness (R) - Neurological Exam Neurological exam: Alert, Oriented x3 - Psychiatric Exam Psychiatric exam: Normal Affect, Normal Mood - Skin Skin Exam: Dry, Warm Results - Vital Signs Recent Vital Signs: Last Vital Signs Temp 97.9 F 12/26/16 04:30 Pulse 66 12/26/16 04:30 Resp 18 12/26/16 04:30 BP 110/68 12/26/16 04:30 Pulse Ox 98 12/26/16 04:30 - Labs Result Diagrams: 12/25/16 05:20 12/25/16 05:20 Labs: Laboratory Results - last 24 hr 12/25/16 12/25/16 12/25/16 05:20 05:20 05:20 WBC 6.3 RBC 3.87 Hgb 10.0 L Hct 31.7 L MCV 81.7 MCH 25.8 L MCHC 31.6 L RDW 17.1 H Plt Count 198 ESR 53 H Sodium 143 Potassium 4.1 Chloride 108 H Carbon Dioxide 21 L Anion Gap 18 BUN 13 Creatinine 0.7 Est GFR ( Amer) > 60 Est GFR (Non-Af Amer) > 60 POC Glucose (mg/dL) Random Glucose 133 H Hemoglobin A1c 8.9 H Calcium 8.9 Total Bilirubin 0.6 AST 22 ALT 25 Alkaline Phosphatase 72 Total Protein 6.7 Albumin 3.5 Globulin 3.2 Albumin/Globulin Ratio 1.1 Triglycerides 83 Cholesterol 113 LDL Cholesterol Direct 56 HDL Cholesterol 32 TSH 3rd Generation 2.01 12/25/16 12/25/16 12/25/16 05:49 11:04 16:03 WBC RBC Hgb Hct MCV MCH MCHC RDW Plt Count ESR Sodium Potassium Chloride Carbon Dioxide Anion Gap BUN Creatinine Est GFR ( Amer) Est GFR (Non-Af Amer) POC Glucose (mg/dL) 140 H 116 H 269 H Random Glucose Hemoglobin A1c Calcium Total Bilirubin AST ALT Alkaline Phosphatase Total Protein Albumin Globulin Albumin/Globulin Ratio Triglycerides Cholesterol LDL Cholesterol Direct HDL Cholesterol TSH 3rd Generation 12/25/16 21:29 WBC RBC Hgb Hct MCV MCH MCHC RDW Plt Count ESR Sodium Potassium Chloride Carbon Dioxide Anion Gap BUN Creatinine Est GFR ( Amer) Est GFR (Non-Af Amer) POC Glucose (mg/dL) 236 H Random Glucose Hemoglobin A1c Calcium Total Bilirubin AST ALT Alkaline Phosphatase Total Protein Albumin Globulin Albumin/Globulin Ratio Triglycerides Cholesterol LDL Cholesterol Direct HDL Cholesterol TSH 3rd Generation Assessment & Plan - Assessment and Plan (Free Text) Assessment: 46F with skin ulcerations Plan: Follow up podiatry biopsy results Wound care to see. Currently using adaptic, 4x4s and kerlex to cover LUE ulcer R/O autoimmune or infectious causes Will D/W Dr. Betito Cordova PGY4
--- NOTE | 2016-12-26 05:37 | CP.PCM.PN ---
Subjective - Date & Time of Evaluation Date of Evaluation: 12/26/16 Time of Evaluation: 05:35 - Subjective Subjective: Podiatry Progress Note - Dr. Ibarra 46 year old female patient seen at bedside POD#1 bilateral leg wound debridement with incision and drainage, excisional biopsy (DOS: 12/25/16). Patient denies any acute events overnight. Patient reports mild pain to her legs bilaterally, however states she feels great relief from the drainage of pus from her legs. Patient denies N/V/F/D/C/SOB. Offers no other pedal complaints at this time. Objective - Vital Signs/Intake and Output Vital Signs (last 24 hours): Temp Pulse Resp BP Pulse Ox 97.9 F 66 18 110/68 98 12/26/16 04:30 12/26/16 04:30 12/26/16 04:30 12/26/16 04:30 12/26/16 04:30 Intake and Output: 12/25/16 12/26/16 18:59 06:59 Intake Total 850 Balance 850 - Medications Medications: Current Medications Hydromorphone HCl (Dilaudid) 1 mg IVP Q4 PRN PRN Reason: pain 1-10 Last Admin: 12/25/16 23:01 Dose: 1 mg Vancomycin HCl 1 gm/ Sodium (Chloride) 250 mls @ 166.667 mls/hr IVPB Q12 [facility] PRN Reason: Protocol Last Admin: 12/25/16 20:31 Dose: 166.667 mls/hr Piperacillin Sod/Tazobactam (Sod 4.5 gm/ Sodium Chloride) 100 mls @ 100 mls/hr IVPB Q8 [facility] PRN Reason: Protocol Last Admin: 12/26/16 00:06 Dose: 100 mls/hr Dextrose (Dextrose 5% In Water) 500 mls @ 0 mls/hr IV .Q0M [facility] PRN Reason: Per Protocol Stop: 12/26/16 07:58 Lactated Ringer's (Lactated Ringer's) 1,000 mls @ 125 mls/hr IV .Q8H [facility] Last Admin: 12/26/16 03:41 Dose: Not Given Ibuprofen (Motrin Tab) 600 mg PO Q8H PRN PRN Reason: Pain, moderate (4-7) Ibuprofen (Motrin Tab) 800 mg PO Q8 PRN PRN Reason: Pain, Mild (1-3) Insulin Human Regular (Humulin R) 0 units SC ACCU-CHECK [facility] PRN Reason: Protocol Last Admin: 12/25/16 22:46 Dose: Not Given Oxycodone/Acetaminophen (Percocet 5/325 Mg Tab) 1 tab PO Q6 PRN PRN Reason: Pain, severe (8-10) Stop: 12/28/16 11:01 Pantoprazole Sodium (Protonix Inj) 40 mg IVP DAILY [facility] Last Admin: 12/25/16 09:20 Dose: 40 mg - Labs Labs: 12/25/16 05:20 12/25/16 05:20 PT 13.5 Seconds (9.8-13.1) H 12/24/16 21:45 INR 1.2 (0.9-1.2) 12/24/16 21:45 APTT 24.6 Seconds (25.6-37.1) L 12/24/16 21:45 - Constitutional Appears: Well, Non-toxic, No Acute Distress - Extremities Exam Additional comments: VASC: DP and PT pulses weakly palpable 1/4 b/l. CFT <3 seconds to all digits b/ l. Temperature gradient warm to warm b/l. No increase in warmth noted to drained abscesses located on 1) posterior right calf, 2) anterior aspect of distal half right leg, and 3) distal half of left leg. NEURO: Gross sensation intact bilaterally. DERM: Multiple abscesses with surrounding erythema noted to legs bilaterally, drained and packed with 1/4" plain packing strip - 1) posterior right calf; 2) anterior aspect of distal half right leg, and 3) distal half of right leg. Hypergranular ulceration measuring approximately 6 cm x 4 cm noted to the medial aspect of right calf with beefy red base and surrounding mixed hyper- and hypo-pigmentation periwound. Hypergranular circular ulceration noted to proximal-anterior aspect of right leg measuring approximately 2.5 x 2.5 cm with beefy red base and surroudning hypopigmented/erythematous periwound. ORTHO: Pain on palpation ulcerations and abscesses. - Neurological Exam Neurological Exam: Alert, Awake, Oriented x3 - Psychiatric Exam Psychiatric exam: Normal Affect, Normal Mood Assessment and Plan - Assessment and Plan (Free Text) Assessment: 46 year old female patient POD#1 bilateral leg wound debridement with incision and drainage, excisional biopsy (DOS: 12/25/16) Plan: Patient seen and evaluated at bedside Discussed with attending, Dr. Ibarra Labs and vitals reviewed = afebrile, WBC 6.8, ESR 53, A1c 8.9 - Rheum Arthritis panel = negative - RPR = nonreactive - Hep B Antigen = negative - Hep C Antibody = negative - HIV1Ab = nonreactive Bilateral lower extremity dressed with DSD - packing left in place WBAT bilateral LE LLE XR reviewed: Negative for soft tissue emphysema, negative for acute fracture RLE XR reviewed: Negative for soft tissue emphysema, negative for acute fracture F/U Rheumatology consult, recs appreciated R/O autoimmune vasculitis, malignancy Awaiting RLE & LLE biospsy skin ulcer reports Awaiting RLE & LLE abscess wound culture reports Continue abx per ID - Vancomycin, Zosyn; recs appreciated Continue pain mgmt Podiatry will continue to follow patient while in house
[2016-12-26] MEDS: HYDROmorphone 0.5 mg/0.5 ml ISec IVP PRN (05:39)
[2016-12-26 06:32] LABS: HEMATOCRIT 31.3 % (34.0-47.0); MEAN CELL VOLUME 80.9 fl (81.0-99.0); MEAN CORPUSCULAR HEMOGLOBIN 25.9 pg (27.0-31.0); RED CELL DISTRIBUTION WIDTH 16.9 % (11.5-14.5); WHITE BLOOD COUNT 6.8 K/uL (4.8-10.8)
[2016-12-26 06:57] LABS: BLOOD UREA NITROGEN 14 mg/dl (7-17); CALCIUM 9.5 mg/dL (8.4-10.2); CARBON DIOXIDE 21 mmol/L (22-30); CHLORIDE 106 mmol/L (98-107); GFR AFRICAN-AMERICAN > 60; GLUCOSE,RANDOM 149 mg/dL (65-105); POTASSIUM 4.3 MMOL/L (3.6-5.0); SODIUM 141 mmol/l (132-148)
[2016-12-26] MEDS: Insulin Regular 100 units/ml SC SCH ×4 (07:00→22:36)
[2016-12-26] MEDS: Silver Sulfadiazine 1% CREAM (50 gm) TOP SCH ×2 (09:32→18:11)
--- NOTE | 2016-12-26 12:12 | CP.PCM.PN ---
Subjective - Date & Time of Evaluation Date of Evaluation: 12/26/16 Time of Evaluation: 08:30 - Subjective Subjective: Patient seen at bedside doing well. Patient tolerated the procedure well. Denies any overnight events. Will follow up on pathology reports Objective - Vital Signs/Intake and Output Vital Signs (last 24 hours): Temp Pulse Resp BP Pulse Ox 97.9 F 70 20 107/69 99 12/26/16 08:15 12/26/16 08:15 12/26/16 08:15 12/26/16 08:15 12/26/16 08:15 - Medications Medications: Current Medications Hydromorphone HCl (Dilaudid) 1 mg IVP Q4 PRN PRN Reason: pain 1-10 Last Admin: 12/26/16 05:39 Dose: 1 mg Vancomycin HCl 1 gm/ Sodium (Chloride) 250 mls @ 166.667 mls/hr IVPB Q12 [facility] PRN Reason: Protocol Last Admin: 12/26/16 09:31 Dose: 166.667 mls/hr Piperacillin Sod/Tazobactam (Sod 4.5 gm/ Sodium Chloride) 100 mls @ 100 mls/hr IVPB Q8 [facility] PRN Reason: Protocol Last Admin: 12/26/16 09:30 Dose: 100 mls/hr Lactated Ringer's (Lactated Ringer's) 1,000 mls @ 125 mls/hr IV .Q8H [facility] Last Admin: 12/26/16 03:41 Dose: Not Given Ibuprofen (Motrin Tab) 600 mg PO Q8H PRN PRN Reason: Pain, moderate (4-7) Ibuprofen (Motrin Tab) 800 mg PO Q8 PRN PRN Reason: Pain, Mild (1-3) Insulin Human Regular (Humulin R) 0 units SC ACCU-CHECK [facility] PRN Reason: Protocol Last Admin: 12/26/16 07:00 Dose: Not Given Oxycodone/Acetaminophen (Percocet 5/325 Mg Tab) 1 tab PO Q6 PRN PRN Reason: Pain, severe (8-10) Stop: 12/28/16 11:01 Pantoprazole Sodium (Protonix Inj) 40 mg IVP DAILY [facility] Last Admin: 12/26/16 09:29 Dose: 40 mg Silver Sulfadiazine (Silvadene 1% 50 Gm) 1 applic TOP BID [facility] Last Admin: 12/26/16 09:32 Dose: Not Given - Labs Labs: 12/26/16 05:25 12/26/16 05:25 PT 13.5 Seconds (9.8-13.1) H 12/24/16 21:45 INR 1.2 (0.9-1.2) 12/24/16 21:45 APTT 24.6 Seconds (25.6-37.1) L 12/24/16 21:45 Assessment and Plan - Assessment and Plan (Free Text) Assessment: 1) B/L leg ulceration and abscess - POD #1 Bilateral leg wound debridement w/ incision and drainage, excisional biopsy. - Spoke with Surg: Swabs for AFB and fungal cultures have been taken will follow up with results - F/U with Biopsy results - Rhematology on board - ID on board - Will call for dermatology consult 2)DM2 - Metformin 500 BID - sliding scale
--- NOTE | 2016-12-26 13:06 | CP.PCM.PN ---
Subjective - Date & Time of Evaluation Date of Evaluation: 12/26/16 Time of Evaluation: 08:00 - Subjective Subjective: wound cultures pending no fever Objective - Vital Signs/Intake and Output Vital Signs (last 24 hours): Temp Pulse Resp BP Pulse Ox 98.4 F 77 20 105/69 98 12/26/16 12:09 12/26/16 12:09 12/26/16 12:09 12/26/16 12:09 12/26/16 12:09 - Medications Medications: Current Medications Hydromorphone HCl (Dilaudid) 1 mg IVP Q4 PRN PRN Reason: pain 1-10 Last Admin: 12/26/16 05:39 Dose: 1 mg Vancomycin HCl 1 gm/ Sodium (Chloride) 250 mls @ 166.667 mls/hr IVPB Q12 [facility] PRN Reason: Protocol Last Admin: 12/26/16 09:31 Dose: 166.667 mls/hr Piperacillin Sod/Tazobactam (Sod 4.5 gm/ Sodium Chloride) 100 mls @ 100 mls/hr IVPB Q8 [facility] PRN Reason: Protocol Last Admin: 12/26/16 09:30 Dose: 100 mls/hr Lactated Ringer's (Lactated Ringer's) 1,000 mls @ 125 mls/hr IV .Q8H [facility] Last Admin: 12/26/16 03:41 Dose: Not Given Ibuprofen (Motrin Tab) 600 mg PO Q8H PRN PRN Reason: Pain, moderate (4-7) Ibuprofen (Motrin Tab) 800 mg PO Q8 PRN PRN Reason: Pain, Mild (1-3) Insulin Human Regular (Humulin R) 0 units SC ACCU-CHECK COUNT [facility]CLUDES [facility] PRN Reason: Protocol Last Admin: 12/26/16 07:00 Dose: Not Given Oxycodone/Acetaminophen (Percocet 5/325 Mg Tab) 1 tab PO Q6 PRN PRN Reason: Pain, severe (8-10) Stop: 12/28/16 11:01 Pantoprazole Sodium (Protonix Inj) 40 mg IVP DAILY [facility] Last Admin: 12/26/16 09:29 Dose: 40 mg Silver Sulfadiazine (Silvadene 1% 50 Gm) 1 applic TOP BID [facility]CLUD[facility] Last Admin: 12/26/16 09:32 Dose: Not Given - Labs Labs: 12/26/16 05:25 12/26/16 05:25 PT 13.5 Seconds (9.8-13.1) H 12/24/16 21:45 INR 1.2 (0.9-1.2) 12/24/16 21:45 APTT 24.6 Seconds (25.6-37.1) L 12/24/16 21:45 - Constitutional Appears: Non-toxic - Head Exam Head Exam: NORMOCEPHALIC - Eye Exam Eye Exam: absent: Scleral icterus - ENT Exam ENT Exam: Mucous Membranes Dry - Neck Exam Neck Exam: absent: Lymphadenopathy - Respiratory Exam Respiratory Exam: Decreased Breath Sounds - Cardiovascular Exam Cardiovascular Exam: REGULAR RHYTHM - GI/Abdominal Exam GI & Abdominal Exam: Soft - Rectal Exam Rectal Exam: Deferred - Exam Exam: NORMAL INSPECTION Assessment and Plan (1) Abscess of left lower extremity Status: Acute (2) Cellulitis Status: Acute - Assessment and Plan (Free Text) Assessment: r/o autoimmune vasculitis, malignancy , infection Dr Richards , Dr Monson, Dr Falcon to evaluate
--- NOTE | 2016-12-26 14:47 | OP ---
PROCEDURE DATE: 12/25/2016 SURGEON: Dr. Juan Diego Ibarra DPM SQL REPORT ANALYST: Dr. Mahad Wilson DPM, PGY1 ANESTHESIA ADMINISTERED BY: Dr. Vin MD TYPE OF ANESTHESIA: General LMA. PREOPERATIVE DIAGNOSES: Bilateral proximal leg ulcerations and bilateral distal leg abscesses. POSTOPERATIVE DIAGNOSES: Bilateral proximal leg ulcerations and bilateral distal leg abscesses. NAME OF PROCEDURE: 1. Excisional biopsy of right leg ulceration. 2. Incision and drainage of right leg abscess with irrigation. 3. Excisional biopsy of the left leg ulceration. 4. Incision and drainage of the left leg abscess with irrigation. INDICATIONS: The patient is a 46-year-old female with the above diagnosis. The patient has exhausted all conservative treatment at this time and now requires surgical intervention. The patient signed the consent after careful explanation of risks, benefits, complications and alternatives for surgical procedure. No guarantees were given or implied. N.p.o. status was confirmed prior to taking the patient to the OR. PREPARATION: The patient was brought into the operating room and placed on the operating room table in a supine position. Time-out was performed for identification of the correct patient and procedure. After induction of general LMA sedation, both lower extremities were prepped and draped in normal sterile manner and the procedure began. No tourniquet was used during the procedure. DESCRIPTION OF PROCEDURE: Procedure #1: Attention was first turned to the proximal right lower leg where an approximately 2.5 x 2.5 cm ulceration was noted on the medial anterior calf with hypergranular periwound skin and red beefy granular base. Using a #15 blade, an excisional biopsy was taken from the ulcer base down to the level of subcutaneous tissue measuring roughly 0.5 x 0.3 cm and sent to Pathology for evaluation. The wound was then dressed with Xeroform gauze, Kerlix, and Coban. Procedure #2. Attention was then turned to the lateral aspect of the patient's right leg where a hyperpigmented area of fluctuant skin consistent with an underlying abscess was identified. Using a fresh #15 blade, an approximately 4 cm incision was made down to the level of the subcutaneous tissue. Upon incision, approximately 5 mL of white milky purulent drainage was expressed from the site. Two cultures were taken from the site for microbiological evaluation. The surgical site was milked until no further purulent drainage was expressed. A pulse lavage was then inserted into the ulcer site and the area was flushed with 1500 mL of bacitracin laced normal saline. One quarter-inch plain packing was inserted into the incision site and the surgical site was dressed with Xeroform gauze, Kerlix, and Coban. Procedure #3. Attention was then turned to the proximal left lower leg where an approximately 6 x 4 cm ulceration was noted on the anterior chirinos with hypergranular periwound skin and red beefy granular base. Three separate punch biopsies were taken from the ulcer base and sent to Pathology for evaluation. The wound was then dressed with Xeroform gauze, Kerlix, and Coban. Procedure #4. Attention was then turned to the lateral aspect of the patient's left distal leg where a hyperpigmented area of fluctuant skin consistent with an underlying abscess was identified. Using a fresh #15 blade, an approximately 4 cm longitudinal incision was made down to below the level of the subcutaneous tissue. Upon incision, approximately 2 mL of white milky purulent drainage was expressed from the site. Two cultures were taken from the site for microbiological evaluation. The surgical site was milked until no further purulent drainage was expressed. While milking the patient's leg, approximately 5 mL of necrotic adipose tissue was exuded from the leg through the incision site. Three separate samples of the tissue were collected and sent to the Pathology for examination. A pulse lavage was then inserted into the incision site and the area was flushed with 1500 mL of bacitracin laced normal saline. Quarter-inch plain packing was inserted into the incision site and the surgical site was dressed with Xeroform gauze, Kerlix, and Coban. POSTOPERATIVE CONDITION: The patient tolerated the anesthesia and procedure well and was escorted to the recovery room with vital signs stable and neurovascular status intact to both lower extremities. The patient is instructed to remain nonweightbearing to both lower extremities. Podiatry will continue to follow the patient while in-house. Mahad Wilson DPM Juan Diego Ibarra DPM JANIS
[2016-12-26] MEDS: Enoxaparin 40 mg Syringe SC SCH (18:10)
[2016-12-27] MEDS: Piperacillin/Tazobact 4.5 GM in Sodium Chloride 0.9% 100 ML IVPB SCH ×3 (00:28→18:27)
--- NOTE | 2016-12-27 09:33 | CP.PCM.PN ---
Subjective - Date & Time of Evaluation Date of Evaluation: 12/27/16 Time of Evaluation: 07:40 - Subjective Subjective: Patient seen and examined at bedside this AM. NAEO. C/o persistent pain in the legs well controlled on current regimen. No fevers or chills Objective - Vital Signs/Intake and Output Vital Signs (last 24 hours): Temp Pulse Resp BP Pulse Ox 98.4 F 71 19 107/72 98 12/27/16 07:58 12/27/16 07:58 12/27/16 07:58 12/27/16 07:58 12/27/16 07:58 - Medications Medications: Current Medications Enoxaparin Sodium (Lovenox) 40 mg SC DAILY [facility] PRN Reason: Protocol Last Admin: 12/26/16 18:10 Dose: 40 mg Hydromorphone HCl (Dilaudid) 1 mg IVP Q4 PRN PRN Reason: pain 1-10 Last Admin: 12/26/16 05:39 Dose: 1 mg Vancomycin HCl 1 gm/ Sodium (Chloride) 250 mls @ 166.667 mls/hr IVPB Q12 [facility] PRN Reason: Protocol Last Admin: 12/26/16 20:32 Dose: 166.667 mls/hr Piperacillin Sod/Tazobactam (Sod 4.5 gm/ Sodium Chloride) 100 mls @ 100 mls/hr IVPB Q8 [facility] PRN Reason: Protocol Last Admin: 12/27/16 00:28 Dose: 100 mls/hr Ibuprofen (Motrin Tab) 600 mg PO Q8H PRN PRN Reason: Pain, moderate (4-7) Ibuprofen (Motrin Tab) 800 mg PO Q8 PRN PRN Reason: Pain, Mild (1-3) Last Admin: 12/27/16 08:27 Dose: 800 mg Insulin Human Regular (Humulin R) 0 units SC ACCU-CHECK [facility] PRN Reason: Protocol Last Admin: 12/26/16 22:36 Dose: Not Given Metformin HCl (Glucophage) 500 mg PO BIDWM [facility] Last Admin: 12/27/16 08:28 Dose: 500 mg Oxycodone/Acetaminophen (Percocet 5/325 Mg Tab) 1 tab PO Q6 PRN PRN Reason: Pain, severe (8-10) Stop: 12/28/16 11:01 Pantoprazole Sodium (Protonix Inj) 40 mg IVP DAILY [facility] Last Admin: 12/26/16 09:29 Dose: 40 mg Silver Sulfadiazine (Silvadene 1% 50 Gm) 1 applic TOP BID [facility] Last Admin: 12/26/16 18:11 Dose: 1 applic - Labs Labs: 12/26/16 05:25 12/26/16 05:25 PT 13.5 Seconds (9.8-13.1) H 12/24/16 21:45 INR 1.2 (0.9-1.2) 12/24/16 21:45 APTT 24.6 Seconds (25.6-37.1) L 12/24/16 21:45 - Constitutional Appears: Non-toxic, No Acute Distress - Head Exam Head Exam: ATRAUMATIC, NORMOCEPHALIC - Eye Exam Eye Exam: Normal appearance. absent: Conjunctival injection, Scleral icterus - ENT Exam ENT Exam: Mucous Membranes Moist, Normal Oropharynx - Respiratory Exam Respiratory Exam: NORMAL BREATHING PATTERN. absent: Accessory Muscle Use, Respiratory Distress - Cardiovascular Exam Cardiovascular Exam: RRR - GI/Abdominal Exam GI & Abdominal Exam: Soft. absent: Distended - Extremities Exam Additional comments: BL lower legs covered in dressings placed by podiatry. Left upper extremity with dressing covering forearm lesion c/d/i. Raised lesion on left upper arm approximately 3cm in diameter unchanged. - Neurological Exam Neurological Exam: Alert, Awake, Oriented x3 - Psychiatric Exam Psychiatric exam: Normal Affect, Normal Mood - Skin Skin Exam: Normal Color, Warm Assessment and Plan - Assessment and Plan (Free Text) Assessment: 46F with multiple chronic granulomatous skin lesions Plan: Follow up podiatry biopsy results Follow up fungal, AFB, and bacterial cultures Follow up ID recs Wound care per Podiatry and wound care nurse R/O autoimmune or infectious causes if LE biopsies non-conclusive, will consider biopsies of the left forearm lesion Seen and discussed with Dr. Betito Hernandez, PGY2
[2016-12-27] MEDS: Insulin Regular 100 units/ml SC SCH ×4 (10:15→22:00)
[2016-12-27] MEDS: Enoxaparin 40 mg Syringe SC SCH (10:16)
[2016-12-27] MEDS: Silver Sulfadiazine 1% CREAM (50 gm) TOP SCH ×2 (10:17→18:36)
--- NOTE | 2016-12-27 15:04 | CP.PCM.PN ---
Subjective - Date & Time of Evaluation Date of Evaluation: 12/27/16 Time of Evaluation: 15:02 - Subjective Subjective: Patient feels a lot better. Noted uncontrolled DM 2 Has no fever Has no chest pain or SOB. Objective - Vital Signs/Intake and Output Vital Signs (last 24 hours): Temp Pulse Resp BP Pulse Ox 98.4 F 71 19 107/72 98 12/27/16 07:58 12/27/16 07:58 12/27/16 07:58 12/27/16 07:58 12/27/16 07:58 - Medications Medications: Current Medications Enoxaparin Sodium (Lovenox) 40 mg SC DAILY [facility] PRN Reason: Protocol Last Admin: 12/27/16 10:16 Dose: 40 mg Hydromorphone HCl (Dilaudid) 1 mg IVP Q4 PRN PRN Reason: pain 1-10 Last Admin: 12/26/16 05:39 Dose: 1 mg Vancomycin HCl 1 gm/ Sodium (Chloride) 250 mls @ 166.667 mls/hr IVPB Q12 [facility] PRN Reason: Protocol Last Admin: 12/27/16 10:18 Dose: 166.667 mls/hr Piperacillin Sod/Tazobactam (Sod 4.5 gm/ Sodium Chloride) 100 mls @ 100 mls/hr IVPB Q8 [facility] PRN Reason: Protocol Last Admin: 12/27/16 10:18 Dose: 100 mls/hr Ibuprofen (Motrin Tab) 600 mg PO Q8H PRN PRN Reason: Pain, moderate (4-7) Ibuprofen (Motrin Tab) 800 mg PO Q8 PRN PRN Reason: Pain, Mild (1-3) Last Admin: 12/27/16 08:27 Dose: 800 mg Insulin Human Regular (Humulin R) 0 units SC ACCU-CHECK [facility] PRN Reason: Protocol Last Admin: 12/27/16 13:16 Dose: 6 units Metformin HCl (Glucophage) 1,000 mg PO BIDWM [facility] Oxycodone/Acetaminophen (Percocet 5/325 Mg Tab) 1 tab PO Q6 PRN PRN Reason: Pain, severe (8-10) Stop: 12/28/16 11:01 Pantoprazole Sodium (Protonix Inj) 40 mg IVP DAILY [facility] Last Admin: 12/27/16 10:17 Dose: 40 mg Pioglitazone HCl (Actos) 30 mg PO DAILY [facility] Silver Sulfadiazine (Silvadene 1% 50 Gm) 1 applic TOP BID [facility] Last Admin: 12/27/16 10:17 Dose: 1 applic - Labs Labs: 12/26/16 05:25 12/26/16 05:25 PT 13.5 Seconds (9.8-13.1) H 12/24/16 21:45 INR 1.2 (0.9-1.2) 12/24/16 21:45 APTT 24.6 Seconds (25.6-37.1) L 12/24/16 21:45 - Head Exam Head Exam: NORMAL INSPECTION - Eye Exam Eye Exam: Normal appearance - ENT Exam ENT Exam: Mucous Membranes Moist - Respiratory Exam Respiratory Exam: Clear to Ausculation Bilateral - Cardiovascular Exam Cardiovascular Exam: REGULAR RHYTHM - GI/Abdominal Exam GI & Abdominal Exam: Normal Bowel Sounds - Neurological Exam Neurological Exam: Awake, Oriented x3 - Psychiatric Exam Psychiatric exam: Normal Mood Assessment and Plan (1) Diabetes mellitus type 2 in nonobese Status: Acute (2) Cellulitis Status: Acute (3) Abscess of left lower extremity Status: Acute - Assessment and Plan (Free Text) Plan: Increase metformin to 1000 bid add januvia 100 mg daily and pioglitazone 30 mg daily low salt low fat 2000 claritza diet recheck labs next week.
--- NOTE | 2016-12-27 16:32 | CP.PCM.PN ---
Subjective - Date & Time of Evaluation Date of Evaluation: 12/27/16 Time of Evaluation: 09:45 - Subjective Subjective: Podiatry Progress Note - Dr. Ibarra 46 year old female patient seen at bedside POD#2 bilateral leg wound debridement with incision and drainage, excisional biopsy (DOS: 12/25/16). Patient seen resting comfortably at time of visit. Patient denies any acute events overnight. Patient states she is feeling better, admits to mild pain however well-controlled. Patient states she has been able to ambulate without any issues. Patient denies N/V/F/D/C/SOB/calf pain. No other pedal complaints at this time. Objective - Vital Signs/Intake and Output Vital Signs (last 24 hours): Temp Pulse Resp BP Pulse Ox 98.4 F 71 19 107/72 98 12/27/16 07:58 12/27/16 07:58 12/27/16 07:58 12/27/16 07:58 12/27/16 07:58 - Medications Medications: Current Medications Enoxaparin Sodium (Lovenox) 40 mg SC DAILY [facility] PRN Reason: Protocol Last Admin: 12/27/16 10:16 Dose: 40 mg Hydromorphone HCl (Dilaudid) 1 mg IVP Q4 PRN PRN Reason: pain 1-10 Last Admin: 12/26/16 05:39 Dose: 1 mg Vancomycin HCl 1 gm/ Sodium (Chloride) 250 mls @ 166.667 mls/hr IVPB Q12 [facility] PRN Reason: Protocol Last Admin: 12/27/16 10:18 Dose: 166.667 mls/hr Piperacillin Sod/Tazobactam (Sod 4.5 gm/ Sodium Chloride) 100 mls @ 100 mls/hr IVPB Q8 [facility] PRN Reason: Protocol Last Admin: 12/27/16 10:18 Dose: 100 mls/hr Ibuprofen (Motrin Tab) 600 mg PO Q8H PRN PRN Reason: Pain, moderate (4-7) Ibuprofen (Motrin Tab) 800 mg PO Q8 PRN PRN Reason: Pain, Mild (1-3) Last Admin: 12/27/16 08:27 Dose: 800 mg Insulin Human Regular (Humulin R) 0 units SC ACCU-CHECK [facility] PRN Reason: Protocol Last Admin: 12/27/16 13:16 Dose: 6 units Metformin HCl (Glucophage) 1,000 mg PO BIDWM [facility] Oxycodone/Acetaminophen (Percocet 5/325 Mg Tab) 1 tab PO Q6 PRN PRN Reason: Pain, severe (8-10) Stop: 12/28/16 11:01 Pantoprazole Sodium (Protonix Inj) 40 mg IVP DAILY [facility] Last Admin: 12/27/16 10:17 Dose: 40 mg Pioglitazone HCl (Actos) 30 mg PO DAILY [facility] Silver Sulfadiazine (Silvadene 1% 50 Gm) 1 applic TOP BID [facility] Last Admin: 12/27/16 10:17 Dose: 1 applic Sitagliptin Phosphate (Januvia) 100 mg PO DAILY [facility] - Labs Labs: 12/26/16 05:25 12/26/16 05:25 PT 13.5 Seconds (9.8-13.1) H 12/24/16 21:45 INR 1.2 (0.9-1.2) 12/24/16 21:45 APTT 24.6 Seconds (25.6-37.1) L 12/24/16 21:45 - Constitutional Appears: Well, Non-toxic, No Acute Distress - Extremities Exam Additional comments: Dressings to bilateral lower extremity appears clean/dry/intact with no strikethrough noted. VASC: DP and PT pulses weakly palpable 1/4 b/l. CFT <3 seconds to all digits b/ l. Temperature gradient warm to warm b/l. No increase in warmth noted to drained abscesses located on 1) posterior right calf, 2) anterior aspect of distal half right leg, and 3) distal half of left leg. NEURO: Gross sensation intact bilaterally. DERM: Multiple abscesses with surrounding erythema noted to legs bilaterally, drained and packed with 1/4" plain packing strip - 1) posterior right calf; 2) anterior aspect of distal half right leg, and 3) distal half of right leg. Hypergranular ulceration measuring approximately 6 cm x 4 cm noted to the medial aspect of left calf with beefy red base and surrounding mixed hyper- and hypo-pigmentation periwound. Hypergranular circular ulceration noted to proximal -anterior aspect of right leg measuring approximately 2.5 x 2.5 cm with beefy red base and surroudning hypopigmented/erythematous periwound - purulence able to be expressed at this visit. ORTHO: Pain on palpation ulcerations and abscesses, decreased POP since yesterday's visit. - Neurological Exam Neurological Exam: Alert, Awake, Oriented x3 - Psychiatric Exam Psychiatric exam: Normal Affect, Normal Mood Assessment and Plan - Assessment and Plan (Free Text) Assessment: 46 year old female patient POD#2 bilateral leg wound debridement with incision and drainage, excisional biopsy (DOS: 12/25/16) Plan: Patient seen and evaluated at bedside with attending, Dr. Ibarra Labs and vitals reviewed = afebrile, ESR 53, A1c 8.9 - Rheum Arthritis panel = negative - RPR = nonreactive - Hep B Antigen = negative - Hep C Ab = negative - HIV1Ab = nonreactive Packing partially pulled from abscesses - plan to remove and flush tomorrow Bilateral lower extremity dressed with Xeroform + DSD WBAT bilateral LE LLE XR reviewed: Negative for soft tissue emphysema, negative for acute fracture RLE XR reviewed: Negative for soft tissue emphysema, negative for acute fracture F/U Rheumatology consult, recs appreciated R/O autoimmune vasculitis, malignancy Awaiting RLE & LLE biospsy skin ulcer reports Awaiting RLE abscess wound culture reports LLE wound culture report (final) = coagulase negative staph Continue abx per ID - Vancomycin, Zosyn Continue pain mgmt Podiatry will continue to follow patient while in house
[2016-12-27] MEDS: PrednisoLONE 1% OPTH SUSP OS SCH (22:01)
[2016-12-28] MEDS: Piperacillin/Tazobact 4.5 GM in Sodium Chloride 0.9% 100 ML IVPB SCH ×3 (01:01→17:29)
[2016-12-28] MEDS: Insulin Regular 100 units/ml SC SCH ×4 (08:42→23:27)
[2016-12-28] MEDS: Enoxaparin 40 mg Syringe SC SCH (08:42)
[2016-12-28] MEDS: Silver Sulfadiazine 1% CREAM (50 gm) TOP SCH ×2 (08:43→17:29)
[2016-12-28] MEDS: PrednisoLONE 1% OPTH SUSP OS SCH ×3 (08:43→17:29)
--- NOTE | 2016-12-28 09:06 | CP.PCM.PN ---
Subjective - Date & Time of Evaluation Date of Evaluation: 12/28/16 Time of Evaluation: 08:10 - Subjective Subjective: Patient seen and examined this AM. NAEO. Denies pain, fevers, or chills. Dressing's being changed by podiatry and nursing. lesion on upper left arm increasing in size and coming to a head Objective - Vital Signs/Intake and Output Vital Signs (last 24 hours): Temp Pulse Resp BP Pulse Ox 98.2 F 74 19 107/70 99 12/28/16 07:59 12/28/16 07:59 12/28/16 07:59 12/28/16 07:59 12/28/16 07:59 - Medications Medications: Current Medications Enoxaparin Sodium (Lovenox) 40 mg SC DAILY [facility] PRN Reason: Protocol Last Admin: 12/28/16 08:42 Dose: 40 mg Vancomycin HCl 1 gm/ Sodium (Chloride) 250 mls @ 166.667 mls/hr IVPB Q12 [facility] PRN Reason: Protocol Last Admin: 12/27/16 22:00 Dose: 166.667 mls/hr Piperacillin Sod/Tazobactam (Sod 4.5 gm/ Sodium Chloride) 100 mls @ 100 mls/hr IVPB Q8 [facility] PRN Reason: Protocol Last Admin: 12/28/16 08:43 Dose: 100 mls/hr Ibuprofen (Motrin Tab) 600 mg PO Q8H PRN PRN Reason: Pain, moderate (4-7) Ibuprofen (Motrin Tab) 800 mg PO Q8 PRN PRN Reason: Pain, Mild (1-3) Last Admin: 12/27/16 22:06 Dose: 800 mg Insulin Human Regular (Humulin R) 0 units SC ACCU-CHECK [facility] PRN Reason: Protocol Last Admin: 12/28/16 08:42 Dose: 2 units Metformin HCl (Glucophage) 1,000 mg PO BIDWM [facility] Last Admin: 12/28/16 08:42 Dose: 1,000 mg Oxycodone/Acetaminophen (Percocet 5/325 Mg Tab) 1 tab PO Q6 PRN PRN Reason: Pain, severe (8-10) Stop: 12/28/16 11:01 Pantoprazole Sodium (Protonix Inj) 40 mg IVP DAILY [facility] Last Admin: 12/28/16 08:43 Dose: 40 mg Pioglitazone HCl (Actos) 30 mg PO DAILY [facility] Last Admin: 12/28/16 08:42 Dose: 30 mg Prednisolone Acetate (Pred Forte 1% Opht Susp) 1 drop OS TID [facility] Last Admin: 12/28/16 08:43 Dose: 1 drop Silver Sulfadiazine (Silvadene 1% 50 Gm) 1 applic TOP BID [facility] Last Admin: 12/28/16 08:43 Dose: 1 applic Sitagliptin Phosphate (Januvia) 100 mg PO DAILY [facility] Last Admin: 12/28/16 08:41 Dose: 100 mg - Labs Labs: 12/26/16 05:25 12/26/16 05:25 PT 13.5 Seconds (9.8-13.1) H 12/24/16 21:45 INR 1.2 (0.9-1.2) 12/24/16 21:45 APTT 24.6 Seconds (25.6-37.1) L 12/24/16 21:45 - Constitutional Appears: Non-toxic, No Acute Distress - Head Exam Head Exam: ATRAUMATIC, NORMOCEPHALIC - Eye Exam Eye Exam: Normal appearance. absent: Conjunctival injection, Scleral icterus - ENT Exam ENT Exam: Mucous Membranes Moist, Normal Oropharynx - Respiratory Exam Respiratory Exam: NORMAL BREATHING PATTERN. absent: Accessory Muscle Use, Respiratory Distress - Cardiovascular Exam Cardiovascular Exam: RRR - GI/Abdominal Exam GI & Abdominal Exam: Soft. absent: Distended, Tenderness - Extremities Exam Additional comments: BL lower legs covered in podiatric dressing c/d/i. L Forearm covered in dressing c/d/i. L upper arm with 2 lesions, distal-most with increased swelling , erythema, and induration, tender to the touch but no fluctuance. Small point with visible subcutanous fluid - Neurological Exam Neurological Exam: Alert, Awake, Oriented x3. absent: Abnormal Gait - Psychiatric Exam Psychiatric exam: Normal Affect, Normal Mood - Skin Skin Exam: Dry, Normal Color, Warm Assessment and Plan - Assessment and Plan (Free Text) Assessment: 46F with multiple chronic granulomatous skin lesions Plan: Follow up podiatry biopsy results Follow up fungal, AFB, and bacterial cultures Follow up ID recs Wound care per Podiatry and wound care nurse R/O autoimmune or infectious causes if LE biopsies inconclusive, will consider biopsies of the left forearm lesion Monitor Left upper arm lesion for infection/abscess. No surgical intervention at this point Seen and discussed with Dr. Betito Hernandez, PGY2
--- NOTE | 2016-12-28 12:33 | CP.PCM.PN ---
Subjective - Date & Time of Evaluation Date of Evaluation: 12/28/16 Time of Evaluation: 10:30 - Subjective Subjective: Podiatry Progress Note - Dr. Ibarra 46 year old female patient seen at bedside POD#3 bilateral leg wound debridement with incision and drainage, excisional biopsy (DOS: 12/25/16). Patient seen resting comfortably at time of visit. Patient denies any acute overnight events. Patient states she is feeling better, pain decreasing. Patient states she has been able to ambulate without any issues. Patient denies N/V/F/D/C/SOB/calf pain. No other pedal complaints at this time. Objective - Vital Signs/Intake and Output Vital Signs (last 24 hours): Temp Pulse Resp BP Pulse Ox 98.2 F 74 19 107/70 99 12/28/16 09:00 12/28/16 09:00 12/28/16 09:00 12/28/16 09:00 12/28/16 09:00 - Medications Medications: Current Medications Enoxaparin Sodium (Lovenox) 40 mg SC DAILY [facility] PRN Reason: Protocol Last Admin: 12/28/16 08:42 Dose: 40 mg Vancomycin HCl 1 gm/ Sodium (Chloride) 250 mls @ 166.667 mls/hr IVPB Q12 [facility] PRN Reason: Protocol Last Admin: 12/28/16 10:02 Dose: 166.667 mls/hr Piperacillin Sod/Tazobactam (Sod 4.5 gm/ Sodium Chloride) 100 mls @ 100 mls/hr IVPB Q8 [facility] PRN Reason: Protocol Last Admin: 12/28/16 08:43 Dose: 100 mls/hr Ibuprofen (Motrin Tab) 600 mg PO Q8H PRN PRN Reason: Pain, moderate (4-7) Ibuprofen (Motrin Tab) 800 mg PO Q8 PRN PRN Reason: Pain, Mild (1-3) Last Admin: 12/27/16 22:06 Dose: 800 mg Insulin Human Regular (Humulin R) 0 units SC ACCU-CHECK [facility] PRN Reason: Protocol Last Admin: 12/28/16 08:42 Dose: 2 units Metformin HCl (Glucophage) 1,000 mg PO BIDWM [facility] Last Admin: 12/28/16 08:42 Dose: 1,000 mg Pantoprazole Sodium (Protonix Inj) 40 mg IVP DAILY [facility] Last Admin: 12/28/16 08:43 Dose: 40 mg Pioglitazone HCl (Actos) 30 mg PO DAILY [facility] Last Admin: 12/28/16 08:42 Dose: 30 mg Prednisolone Acetate (Pred Forte 1% Opht Susp) 1 drop OS TID [facility] Last Admin: 12/28/16 08:43 Dose: 1 drop Silver Sulfadiazine (Silvadene 1% 50 Gm) 1 applic TOP BID [facility] Last Admin: 12/28/16 08:43 Dose: 1 applic Sitagliptin Phosphate (Januvia) 100 mg PO DAILY [facility] Last Admin: 12/28/16 08:41 Dose: 100 mg - Labs Labs: 12/26/16 05:25 12/26/16 05:25 PT 13.5 Seconds (9.8-13.1) H 12/24/16 21:45 INR 1.2 (0.9-1.2) 12/24/16 21:45 APTT 24.6 Seconds (25.6-37.1) L 12/24/16 21:45 - Constitutional Appears: Well, Non-toxic, No Acute Distress - Extremities Exam Additional comments: Dressings to bilateral lower extremity appears clean/dry/intact with no strikethrough noted. VASC: DP and PT pulses weakly palpable 1/4 b/l. CFT <3 seconds to all digits b/ l. Temperature gradient warm to warm b/l. No increase in warmth noted to drained abscesses located on 1) posterior right calf, 2) anterior aspect of distal half right leg, and 3) distal half of left leg. NEURO: Gross sensation intact bilaterally. DERM: Multiple abscesses with surrounding erythema noted to legs bilaterally, drained - 1) posterior right calf; 2) anterior aspect of distal half right leg , and 3) distal half of right leg. Serosanguinous drainage able to be expressed from abscesses. Hypergranular ulceration measuring approximately 6 cm x 4 cm noted to the medial aspect of left calf with beefy red base and surrounding mixed hyper- and hypo-pigmentation periwound. Hypergranular circular ulceration noted to proximal-anterior aspect of right leg measuring approximately 2.5 x 2.5 cm with beefy red base and surroudning hypopigmented/erythematous periwound - purulence able to be expressed at this visit. ORTHO: Pain on palpation ulcerations and abscesses - Neurological Exam Neurological Exam: Alert, Awake, Oriented x3 - Psychiatric Exam Psychiatric exam: Normal Affect, Normal Mood Assessment and Plan - Assessment and Plan (Free Text) Assessment: 46 year old female patient POD#3 bilateral leg wound debridement with incision and drainage, excisional biopsy (DOS: 12/25/16) Plan: Patient seen and evaluated at bedside with attending, Dr. Ibarra Labs and vitals reviewed = afebrile, ESR 53, A1c 8.9 - Rheum Arthritis panel = negative - RPR = nonreactive - Hep B Antigen = negative - Hep C Ab = negative - HIV1Ab = nonreactive Remaining packing pulled from abscesses, flushed with sterile saline, and repacked with 1/4" plain packing Bilateral lower extremity dressed with Xeroform + DSD WBAT bilateral LE LLE XR reviewed: Negative for soft tissue emphysema, negative for acute fracture RLE XR reviewed: Negative for soft tissue emphysema, negative for acute fracture F/U Rheumatology consult, recs appreciated R/O autoimmune vasculitis, malignancy Awaiting RLE & LLE biospsy skin ulcer reports Awaiting RLE abscess wound culture reports LLE wound culture report (final) = coagulase negative staph Continue abx per ID - Vancomycin, Zosyn Continue pain mgmt Podiatry will continue to follow patient while in house
--- NOTE | 2016-12-28 12:49 | CP.PCM.PN ---
Subjective - Date & Time of Evaluation Date of Evaluation: 12/28/16 Time of Evaluation: 07:00 - Subjective Subjective: no fever less pain Objective - Vital Signs/Intake and Output Vital Signs (last 24 hours): Temp Pulse Resp BP Pulse Ox 98.2 F 74 19 107/70 99 12/28/16 09:00 12/28/16 09:00 12/28/16 09:00 12/28/16 09:00 12/28/16 09:00 - Medications Medications: Current Medications Enoxaparin Sodium (Lovenox) 40 mg SC DAILY [facility] PRN Reason: Protocol Last Admin: 12/28/16 08:42 Dose: 40 mg Vancomycin HCl 1 gm/ Sodium (Chloride) 250 mls @ 166.667 mls/hr IVPB Q12 [facility] PRN Reason: Protocol Last Admin: 12/28/16 10:02 Dose: 166.667 mls/hr Piperacillin Sod/Tazobactam (Sod 4.5 gm/ Sodium Chloride) 100 mls @ 100 mls/hr IVPB Q8 [facility] PRN Reason: Protocol Last Admin: 12/28/16 08:43 Dose: 100 mls/hr Ibuprofen (Motrin Tab) 600 mg PO Q8H PRN PRN Reason: Pain, moderate (4-7) Ibuprofen (Motrin Tab) 800 mg PO Q8 PRN PRN Reason: Pain, Mild (1-3) Last Admin: 12/27/16 22:06 Dose: 800 mg Insulin Human Regular (Humulin R) 0 units SC ACCU-CHECK [facility] PRN Reason: Protocol Last Admin: 12/28/16 08:42 Dose: 2 units Metformin HCl (Glucophage) 1,000 mg PO BIDWM [facility] Last Admin: 12/28/16 08:42 Dose: 1,000 mg Pantoprazole Sodium (Protonix Inj) 40 mg IVP DAILY [facility] Last Admin: 12/28/16 08:43 Dose: 40 mg Pioglitazone HCl (Actos) 30 mg PO DAILY [facility] Last Admin: 12/28/16 08:42 Dose: 30 mg Prednisolone Acetate (Pred Forte 1% Opht Susp) 1 drop OS TID [facility] Last Admin: 12/28/16 08:43 Dose: 1 drop Silver Sulfadiazine (Silvadene 1% 50 Gm) 1 applic TOP BID [facility] Last Admin: 10/15/17 08:43 Dose: 1 applic Sitagliptin Phosphate (Januvia) 100 mg PO DAILY [facility] Last Admin: 12/28/16 08:41 Dose: 100 mg - Labs Labs: 12/26/16 05:25 12/26/16 05:25 PT 13.5 Seconds (9.8-13.1) H 12/24/16 21:45 INR 1.2 (0.9-1.2) 12/24/16 21:45 APTT 24.6 Seconds (25.6-37.1) L 12/24/16 21:45 - Constitutional Appears: Non-toxic, Chronically Ill - Head Exam Head Exam: NORMOCEPHALIC - Eye Exam Eye Exam: PERRL - ENT Exam ENT Exam: Mucous Membranes Dry - Neck Exam Neck Exam: absent: Lymphadenopathy - Respiratory Exam Respiratory Exam: Decreased Breath Sounds - Cardiovascular Exam Cardiovascular Exam: REGULAR RHYTHM - GI/Abdominal Exam GI & Abdominal Exam: Distended, Soft - Rectal Exam Rectal Exam: Deferred - Exam Exam: NORMAL INSPECTION Assessment and Plan (1) Abscess of left lower extremity Status: Acute (2) Cellulitis Status: Acute - Assessment and Plan (Free Text) Assessment: all serologies negative pt has pyoderma gangrenosum secondary to poorly controlled diabetes Dr London on consult
--- NOTE | 2016-12-28 15:19 | CP.PCM.PN ---
Subjective - Date & Time of Evaluation Date of Evaluation: 12/28/16 Time of Evaluation: 15:18 - Subjective Subjective: started on increase po hypoglycemics yesterday still with elevated FBS Has no fever Has no chest pain or SOB. Objective - Vital Signs/Intake and Output Vital Signs (last 24 hours): Temp Pulse Resp BP Pulse Ox 98.2 F 74 19 107/70 99 12/28/16 09:00 12/28/16 09:00 12/28/16 09:00 12/28/16 09:00 12/28/16 09:00 - Medications Medications: Current Medications Enoxaparin Sodium (Lovenox) 40 mg SC DAILY [facility] PRN Reason: Protocol Last Admin: 12/28/16 08:42 Dose: 40 mg Vancomycin HCl 1 gm/ Sodium (Chloride) 250 mls @ 166.667 mls/hr IVPB Q12 [facility] PRN Reason: Protocol Last Admin: 12/28/16 10:02 Dose: 166.667 mls/hr Piperacillin Sod/Tazobactam (Sod 4.5 gm/ Sodium Chloride) 100 mls @ 100 mls/hr IVPB Q8 [facility] PRN Reason: Protocol Last Admin: 12/28/16 08:43 Dose: 100 mls/hr Ibuprofen (Motrin Tab) 600 mg PO Q8H PRN PRN Reason: Pain, moderate (4-7) Last Admin: 12/28/16 13:13 Dose: 600 mg Ibuprofen (Motrin Tab) 800 mg PO Q8 PRN PRN Reason: Pain, Mild (1-3) Last Admin: 12/27/16 22:06 Dose: 800 mg Insulin Human Regular (Humulin R) 0 units SC ACCU-CHECK [facility] PRN Reason: Protocol Last Admin: 12/28/16 13:14 Dose: 4 units Metformin HCl (Glucophage) 1,000 mg PO BIDWM [facility] Last Admin: 12/28/16 08:42 Dose: 1,000 mg Pantoprazole Sodium (Protonix Ec Tab) 40 mg PO DAILY [facility] Pioglitazone HCl (Actos) 30 mg PO DAILY [facility] Last Admin: 12/28/16 08:42 Dose: 30 mg Prednisolone Acetate (Pred Forte 1% Opht Susp) 1 drop OS TID [facility] Last Admin: 12/28/16 13:14 Dose: 1 drop Silver Sulfadiazine (Silvadene 1% 50 Gm) 1 applic TOP BID [facility] Last Admin: 12/28/16 08:43 Dose: 1 applic Sitagliptin Phosphate (Januvia) 100 mg PO DAILY [facility] Last Admin: 12/28/16 08:41 Dose: 100 mg - Labs Labs: 12/26/16 05:25 12/26/16 05:25 PT 13.5 Seconds (9.8-13.1) H 12/24/16 21:45 INR 1.2 (0.9-1.2) 12/24/16 21:45 APTT 24.6 Seconds (25.6-37.1) L 12/24/16 21:45 Assessment and Plan (1) Diabetes mellitus type 2 in nonobese Status: Acute (2) Cellulitis Status: Acute (3) Abscess of left lower extremity Status: Acute
--- NOTE | 2016-12-28 17:48 | US ---
PROCEDURE: Duplex ultrasound of the bilateral lower extremity arteries. HISTORY: pvd dm2 COMPARISON: None available. TECHNIQUE: Grayscale and duplex Doppler evaluation of the bilateral common femoral, superficial femoral, popliteal, posterior tibial and dorsalis pedis arteries was performed.. FINDINGS: RIGHT LOWER EXTREMITY: RIGHT COMMON FEMORAL ARTERY: Widely patent. Maximal flow velocity of 82 cm/s. RIGHT SUPERFICIAL FEMORAL ARTERY: Mild atherosclerotic change throughout the right superficial femoral artery without significant peak systolic velocity elevation. Maximal flow velocity of 98 cm/s. RIGHT POPLITEAL ARTERY:Mild atherosclerotic change. Maximal flow velocity of 50 cm/s. RIGHT POSTERIOR TIBIAL ARTERY: Mild atherosclerotic change Maximal flow velocity of 60 cm/s. RIGHT DORSALIS PEDIS ARTERY: Minor atherosclerotic change. Maximal flow velocity of 66 cm/s. LEFT LOWER EXTREMITY: LEFT COMMON FEMORAL ARTERY: Widely patent. Maximal flow velocity of 126 cm/s. LEFT SUPERFICIAL FEMORAL ARTERY: Mild atherosclerotic changes throughout the left superficial femoral artery. Top-normal velocity elevation in the left proximal SFA. Maximal flow velocity of 130 cm/s. LEFT POPLITEAL ARTERY:Mild atherosclerotic change. Maximal flow velocity of 88 cm/s. LEFT POSTERIOR TIBIAL ARTERY: Mild atherosclerotic change. Maximal flow velocity of 74 cm/s. LEFT DORSALIS PEDIS ARTERY: Widely patent. Maximal flow velocity of 47 cm/s. OTHER FINDINGS: Mild atherosclerotic change in the anterior tibial arteries without significant velocity elevation although the right anterior tibial artery was difficult to identified. IMPRESSION: Mild bilateral atherosclerotic change with predominately triphasic flow identified. Very mild velocity elevation within the proximal left SFA. No significant velocity elevation to suggest hemodynamic stenosis.
[2016-12-29] MEDS: Piperacillin/Tazobact 4.5 GM in Sodium Chloride 0.9% 100 ML IVPB SCH ×3 (00:24→17:11)
--- NOTE | 2016-12-29 06:41 | CP.PCM.PN ---
Subjective - Date & Time of Evaluation Date of Evaluation: 12/29/16 Time of Evaluation: 06:38 - Subjective Subjective: Podiatry Progress Note - Dr. Ibarra 46 year old female patient seen at bedside POD#4 bilateral leg wound debridement with incision and drainage, excisional biopsy (DOS: 12/25/16). Patient seen resting comfortably at time of visit. Patient denies any acute overnight events. Patient reports mild pain to her legs, specifically where the abscesses were drained, however controlled. Patient able to ambulate more comfortably. Patient states a new abscess is now developing on the inside of her right forearm. Patient denies N/V/F/D/C/SOB/calf pain. No other pedal complaints at this time. Objective - Vital Signs/Intake and Output Vital Signs (last 24 hours): Temp Pulse Resp BP Pulse Ox 98.1 F 78 18 105/69 98 12/29/16 00:00 12/29/16 00:00 12/29/16 00:00 12/29/16 00:00 12/29/16 00:00 - Medications Medications: Current Medications Enoxaparin Sodium (Lovenox) 40 mg SC DAILY [facility] PRN Reason: Protocol Last Admin: 12/28/16 08:42 Dose: 40 mg Vancomycin HCl 1 gm/ Sodium (Chloride) 250 mls @ 166.667 mls/hr IVPB Q12 [facility] PRN Reason: Protocol Last Admin: 12/28/16 20:45 Dose: 166.667 mls/hr Piperacillin Sod/Tazobactam (Sod 4.5 gm/ Sodium Chloride) 100 mls @ 100 mls/hr IVPB Q8 [facility] PRN Reason: Protocol Last Admin: 12/29/16 00:24 Dose: 100 mls/hr Ibuprofen (Motrin Tab) 600 mg PO Q8H PRN PRN Reason: Pain, moderate (4-7) Last Admin: 12/28/16 13:13 Dose: 600 mg Ibuprofen (Motrin Tab) 800 mg PO Q8 PRN PRN Reason: Pain, Mild (1-3) Last Admin: 12/27/16 22:06 Dose: 800 mg Insulin Human Regular (Humulin R) 0 units SC ACCU-CHECK [facility] PRN Reason: Protocol Last Admin: 12/28/16 23:27 Dose: Not Given Metformin HCl (Glucophage) 1,000 mg PO BIDWM [facility] Last Admin: 12/28/16 17:29 Dose: 1,000 mg Pantoprazole Sodium (Protonix Ec Tab) 40 mg PO DAILY [facility] Pioglitazone HCl (Actos) 30 mg PO DAILY [facility] Last Admin: 12/28/16 08:42 Dose: 30 mg Prednisolone Acetate (Pred Forte 1% Opht Susp) 1 drop OS TID [facility] Last Admin: 12/28/16 17:29 Dose: 1 drop Silver Sulfadiazine (Silvadene 1% 50 Gm) 1 applic TOP BID [facility] Last Admin: 12/28/16 17:29 Dose: 1 applic Sitagliptin Phosphate (Januvia) 100 mg PO DAILY [facility] Last Admin: 12/28/16 08:41 Dose: 100 mg - Labs Labs: 12/26/16 05:25 12/26/16 05:25 PT 13.5 Seconds (9.8-13.1) H 12/24/16 21:45 INR 1.2 (0.9-1.2) 12/24/16 21:45 APTT 24.6 Seconds (25.6-37.1) L 12/24/16 21:45 - Constitutional Appears: Well, Non-toxic, No Acute Distress - Extremities Exam Additional comments: Dressings to bilateral lower extremity appears clean/dry/intact with no strikethrough noted. VASC: DP and PT pulses weakly palpable 1/4 b/l. CFT <3 seconds to all digits b/ l. Temperature gradient warm to warm b/l. No increase in warmth noted to drained abscesses located on 1) posterior right calf, 2) anterior aspect of distal half right leg, and 3) distal half of left leg. NEURO: Gross sensation intact bilaterally. DERM: Multiple abscesses with surrounding erythema noted to legs bilaterally, drained - 1) posterior right calf; 2) anterior aspect of distal half right leg , and 3) distal half of right leg. No Serosanguinous drainage expressed from abscesses at this visit. Ulceration measuring approximately 6 cm x 4 cm noted to the medial aspect of left calf with mixed fibrogranular base and surrounding mixed hyper- and hypo-pigmentation periwound. Circular ulceration noted to proximal-anterior aspect of right leg measuring approximately 2.5 x 2.5 cm with mixed fibrogranular and surroudning hypopigmented/erythematous periwound - no purulence able to be expressed at this visit. ORTHO: Pain on palpation ulcerations and abscesses - Neurological Exam Neurological Exam: Alert, Awake, Oriented x3 - Psychiatric Exam Psychiatric exam: Normal Affect, Normal Mood Assessment and Plan - Assessment and Plan (Free Text) Assessment: 46 year old female patient POD#4 bilateral leg wound debridement with incision and drainage, excisional biopsy (DOS: 12/25/16) Plan: Patient seen and evaluated at bedside with attending, Dr. Ibarra Labs and vitals reviewed = afebrile, ESR 53, A1c 8.9 - Rheum Arthritis panel = negative - RPR = nonreactive - Hep B Antigen = negative - Hep C Ab = negative - HIV1Ab = nonreactive Remaining packing pulled from abscesses, flushed with sterile saline, and repacked with 1/4" plain packing Bilateral lower extremity dressed with Xeroform + DSD WBAT bilateral LE LLE XR reviewed: Negative for soft tissue emphysema, negative for acute fracture RLE XR reviewed: Negative for soft tissue emphysema, negative for acute fracture F/U Rheumatology consult, recs appreciated R/O autoimmune vasculitis, malignancy Awaiting RLE & LLE biospsy pathology RLE wound culture report (final) = no growth LLE wound culture report (final) = coagulase negative staph Continue abx per ID - Vancomycin, Zosyn Continue pain mgmt Podiatry will continue to follow patient while in house
[2016-12-29 06:44] LABS: BASO % 0.7 % (0.0-2.0); EOS # 0.1 K/uL (0.0-0.7); EOS % 2.3 % (0.0-4.0); HEMATOCRIT 28.7 % (34.0-47.0); LYMPH # 0.7 K/uL (1.0-4.3); LYMPH % 16.6 % (20.0-40.0); MEAN CELL VOLUME 81.9 fl (81.0-99.0); MEAN CORPUSCULAR HEMOGLOBIN 25.8 pg (27.0-31.0); MEAN CORPUSCULAR HGB CONC 31.6 g/dL (33.0-37.0); MEAN PLATELET VOLUME 9.3 fl (7.2-11.7); MONO # 0.6 K/uL (0.0-0.8); MONO % 13.7 % (0.0-10.0); NEUT % 66.7 % (50.0-75.0); NRBC % 0.1 % (0.0-0.0); WHITE BLOOD COUNT 4.5 K/uL (4.8-10.8)
[2016-12-29] MEDS: Insulin Regular 100 units/ml SC SCH ×4 (06:48→22:00)
[2016-12-29 06:51] LABS: BLOOD UREA NITROGEN 9 mg/dl (7-17); CALCIUM 8.5 mg/dL (8.4-10.2); CARBON DIOXIDE 27 mmol/L (22-30); CHLORIDE 106 mmol/L (98-107); GFR AFRICAN-AMERICAN > 60; GLUCOSE,RANDOM 146 mg/dL (65-105); POTASSIUM 3.7 MMOL/L (3.6-5.0); SODIUM 141 mmol/l (132-148)
--- NOTE | 2016-12-29 07:22 | CP.PCM.PN ---
Subjective - Date & Time of Evaluation Date of Evaluation: 12/29/16 Time of Evaluation: 07:19 - Subjective Subjective: Surgery: Dr. Cisse Patient doing well. No complaints. Skin lesions remain present. No new ones per patient report. No f/c/n/v. Objective - Vital Signs/Intake and Output Vital Signs (last 24 hours): Temp Pulse Resp BP Pulse Ox 98.1 F 78 18 105/69 98 12/29/16 00:00 12/29/16 00:00 12/29/16 00:00 12/29/16 00:00 12/29/16 00:00 - Medications Medications: Current Medications Enoxaparin Sodium (Lovenox) 40 mg SC DAILY [facility] PRN Reason: Protocol Last Admin: 12/28/16 08:42 Dose: 40 mg Vancomycin HCl 1 gm/ Sodium (Chloride) 250 mls @ 166.667 mls/hr IVPB Q12 [facility] PRN Reason: Protocol Last Admin: 12/28/16 20:45 Dose: 166.667 mls/hr Piperacillin Sod/Tazobactam (Sod 4.5 gm/ Sodium Chloride) 100 mls @ 100 mls/hr IVPB Q8 [facility] PRN Reason: Protocol Last Admin: 12/29/16 00:24 Dose: 100 mls/hr Ibuprofen (Motrin Tab) 600 mg PO Q8H PRN PRN Reason: Pain, moderate (4-7) Last Admin: 12/28/16 13:13 Dose: 600 mg Ibuprofen (Motrin Tab) 800 mg PO Q8 PRN PRN Reason: Pain, Mild (1-3) Last Admin: 12/27/16 22:06 Dose: 800 mg Insulin Human Regular (Humulin R) 0 units SC ACCU-CHECK [facility] PRN Reason: Protocol Last Admin: 12/29/16 06:48 Dose: 2 units Metformin HCl (Glucophage) 1,000 mg PO BIDWM [facility] Last Admin: 12/28/16 17:29 Dose: 1,000 mg Pantoprazole Sodium (Protonix Ec Tab) 40 mg PO DAILY [facility] Pioglitazone HCl (Actos) 30 mg PO DAILY [facility] Last Admin: 12/28/16 08:42 Dose: 30 mg Prednisolone Acetate (Pred Forte 1% Opht Susp) 1 drop OS TID [facility] Last Admin: 12/28/16 17:29 Dose: 1 drop Silver Sulfadiazine (Silvadene 1% 50 Gm) 1 applic TOP BID [facility] Last Admin: 12/28/16 17:29 Dose: 1 applic Sitagliptin Phosphate (Januvia) 100 mg PO DAILY [facility] Last Admin: 12/28/16 08:41 Dose: 100 mg - Labs Labs: 12/29/16 05:35 12/29/16 05:35 PT 13.5 Seconds (9.8-13.1) H 12/24/16 21:45 INR 1.2 (0.9-1.2) 12/24/16 21:45 APTT 24.6 Seconds (25.6-37.1) L 12/24/16 21:45 - Constitutional Appears: Non-toxic, No Acute Distress - Head Exam Head Exam: ATRAUMATIC, NORMOCEPHALIC - Eye Exam Eye Exam: EOMI, Normal appearance - ENT Exam ENT Exam: Mucous Membranes Moist - Respiratory Exam Respiratory Exam: NORMAL BREATHING PATTERN. absent: Respiratory Distress - Cardiovascular Exam Cardiovascular Exam: REGULAR RHYTHM. absent: Tachycardia - Extremities Exam Additional comments: LE dressing CDI, LUE w/ gauze dressing CDI Assessment and Plan - Assessment and Plan (Free Text) Assessment: 46 y/o female w/ multiple fungating skin lesions Plan: -f/u biopsy -add topical anit-fungal to skin lesions -further surgical recs pending pathology -d/w Dr. Betito Simpson PGY3
[2016-12-29] MEDS: Silver Sulfadiazine 1% CREAM (50 gm) TOP SCH ×2 (09:00→17:11)
[2016-12-29] MEDS: PrednisoLONE 1% OPTH SUSP OS SCH ×3 (09:22→17:11)
[2016-12-29] MEDS: Enoxaparin 40 mg Syringe SC SCH (09:22)
[2016-12-29] MEDS: Pantoprazole 40 mg EC Tab PO SCH (09:23)
--- NOTE | 2016-12-29 10:49 | CP.PCM.PN ---
Subjective - Date & Time of Evaluation Date of Evaluation: 12/29/16 Time of Evaluation: 07:00 - Subjective Subjective: iv rx in progress tolerating well Objective - Vital Signs/Intake and Output Vital Signs (last 24 hours): Temp Pulse Resp BP Pulse Ox 98.2 F 72 20 107/68 98 12/29/16 08:15 12/29/16 08:15 12/29/16 08:15 12/29/16 08:15 12/29/16 08:15 - Medications Medications: Current Medications Enoxaparin Sodium (Lovenox) 40 mg SC DAILY [facility] PRN Reason: Protocol Last Admin: 12/29/16 09:22 Dose: 40 mg Vancomycin HCl 1 gm/ Sodium (Chloride) 250 mls @ 166.667 mls/hr IVPB Q12 [facility] PRN Reason: Protocol Last Admin: 12/29/16 09:24 Dose: 166.667 mls/hr Piperacillin Sod/Tazobactam (Sod 4.5 gm/ Sodium Chloride) 100 mls @ 100 mls/hr IVPB Q8 [facility] PRN Reason: Protocol Last Admin: 12/29/16 00:24 Dose: 100 mls/hr Ibuprofen (Motrin Tab) 600 mg PO Q8H PRN PRN Reason: Pain, moderate (4-7) Last Admin: 12/28/16 13:13 Dose: 600 mg Ibuprofen (Motrin Tab) 800 mg PO Q8 PRN PRN Reason: Pain, Mild (1-3) Last Admin: 12/27/16 22:06 Dose: 800 mg Insulin Human Regular (Humulin R) 0 units SC ACCU-CHECK [facility] PRN Reason: Protocol Last Admin: 12/29/16 06:48 Dose: 2 units Ketoconazole (Nizoral) 1 applic TOP BID [facility] Metformin HCl (Glucophage) 1,000 mg PO BIDWM [facility] Last Admin: 12/29/16 09:21 Dose: 1,000 mg Pantoprazole Sodium (Protonix Ec Tab) 40 mg PO DAILY [facility] Last Admin: 12/29/16 09:23 Dose: 40 mg Pioglitazone HCl (Actos) 30 mg PO DAILY [facility] Last Admin: 12/29/16 09:21 Dose: 30 mg Prednisolone Acetate (Pred Forte 1% Opht Susp) 1 drop OS TID [facility] Last Admin: 12/29/16 09:22 Dose: 1 drop Silver Sulfadiazine (Silvadene 1% 50 Gm) 1 applic TOP BID [facility] Last Admin: 12/28/16 17:29 Dose: 1 applic Sitagliptin Phosphate (Januvia) 100 mg PO DAILY [facility] Last Admin: 12/29/16 09:22 Dose: 100 mg - Labs Labs: 12/29/16 05:35 12/29/16 05:35 PT 13.5 Seconds (9.8-13.1) H 12/24/16 21:45 INR 1.2 (0.9-1.2) 12/24/16 21:45 APTT 24.6 Seconds (25.6-37.1) L 12/24/16 21:45 - Constitutional Appears: Non-toxic, Chronically Ill - Head Exam Head Exam: NORMOCEPHALIC - Eye Exam Eye Exam: PERRL. absent: Scleral icterus - ENT Exam ENT Exam: Mucous Membranes Dry, Normal External Ear Exam - Neck Exam Neck Exam: absent: Lymphadenopathy - Respiratory Exam Respiratory Exam: Decreased Breath Sounds - Cardiovascular Exam Cardiovascular Exam: REGULAR RHYTHM - GI/Abdominal Exam GI & Abdominal Exam: Distended, Soft - Rectal Exam Rectal Exam: Deferred - Exam Exam: NORMAL INSPECTION - Extremities Exam Extremities Exam: absent: Pedal Edema - Back Exam Back Exam: absent: CVA tenderness (L), CVA tenderness (R) - Neurological Exam Neurological Exam: Alert, Awake, Oriented x3 - Psychiatric Exam Psychiatric exam: Normal Mood - Skin Additional comments: wounds ++ Assessment and Plan (1) Abscess of left lower extremity Status: Acute (2) Cellulitis Status: Acute - Assessment and Plan (Free Text) Assessment: pyoderma dr ortega on board cont rx
[2016-12-30] MEDS: Piperacillin/Tazobact 4.5 GM in Sodium Chloride 0.9% 100 ML IVPB SCH ×2 (00:06→08:34)
[2016-12-30] MEDS: Insulin Regular 100 units/ml SC SCH ×3 (06:19→14:05)
--- NOTE | 2016-12-30 06:30 | CP.PCM.PN ---
Subjective - Date & Time of Evaluation Date of Evaluation: 12/30/16 Time of Evaluation: 06:29 - Subjective Subjective: Podiatry Progress Note - Dr. Ibarra 46 year old female patient seen at bedside POD#5 bilateral leg wound debridement with incision and drainage, excisional biopsy (DOS: 12/25/16). Patient seen resting comfortably at time of visit, in NAD and AA0x3. Patient denies any acute overnight events. Patient reports mild pain to both her legs, pain increase with dressing change but pain is well controlled. Patient denies N /V/F/D/C/SOB/calf pain. No other pedal complaints at this time. Objective - Vital Signs/Intake and Output Vital Signs (last 24 hours): Temp Pulse Resp BP Pulse Ox 98.2 F 84 20 109/69 98 12/30/16 00:40 12/30/16 00:40 12/30/16 00:40 12/30/16 00:40 12/30/16 00:40 - Medications Medications: Current Medications Enoxaparin Sodium (Lovenox) 40 mg SC DAILY [facility] PRN Reason: Protocol Last Admin: 12/29/16 09:22 Dose: 40 mg Vancomycin HCl 1 gm/ Sodium (Chloride) 250 mls @ 166.667 mls/hr IVPB Q12 [facility] PRN Reason: Protocol Last Admin: 12/29/16 20:40 Dose: 166.667 mls/hr Piperacillin Sod/Tazobactam (Sod 4.5 gm/ Sodium Chloride) 100 mls @ 100 mls/hr IVPB Q8 [facility] PRN Reason: Protocol Last Admin: 12/30/16 00:06 Dose: 100 mls/hr Ibuprofen (Motrin Tab) 600 mg PO Q8H PRN PRN Reason: Pain, moderate (4-7) Last Admin: 12/28/16 13:13 Dose: 600 mg Ibuprofen (Motrin Tab) 800 mg PO Q8 PRN PRN Reason: Pain, Mild (1-3) Last Admin: 12/30/16 06:18 Dose: 800 mg Insulin Human Regular (Humulin R) 0 units SC ACCU-CHECK [facility] PRN Reason: Protocol Last Admin: 12/30/16 06:19 Dose: 2 units Ketoconazole (Nizoral) 1 applic TOP BID [facility] Last Admin: 10/16/17 17:10 Dose: 1 applic Metformin HCl (Glucophage) 1,000 mg PO BIDWM [facility] Last Admin: 12/29/16 17:04 Dose: 1,000 mg Pantoprazole Sodium (Protonix Ec Tab) 40 mg PO DAILY [facility] Last Admin: 12/29/16 09:23 Dose: 40 mg Pioglitazone HCl (Actos) 30 mg PO DAILY [facility] Last Admin: 12/29/16 09:21 Dose: 30 mg Prednisolone Acetate (Pred Forte 1% Opht Susp) 1 drop OS TID [facility] Last Admin: 12/29/16 17:11 Dose: 1 drop Silver Sulfadiazine (Silvadene 1% 50 Gm) 1 applic TOP BID [facility] Last Admin: 12/29/16 17:11 Dose: 1 applic Sitagliptin Phosphate (Januvia) 100 mg PO DAILY [facility] Last Admin: 12/29/16 09:22 Dose: 100 mg - Labs Labs: 12/29/16 05:35 12/29/16 05:35 PT 13.5 Seconds (9.8-13.1) H 12/24/16 21:45 INR 1.2 (0.9-1.2) 12/24/16 21:45 APTT 24.6 Seconds (25.6-37.1) L 12/24/16 21:45 - Constitutional Appears: Well, Non-toxic, No Acute Distress - Extremities Exam Additional comments: Dressings to bilateral lower extremity appears clean/dry/intact with no strikethrough noted. VASC: DP and PT pulses weakly palpable 1/4 b/l. CFT <3 seconds to all digits b/ l. Temperature gradient warm to warm b/l. No increase in warmth noted to drained abscesses located on 1) posterior right calf, 2) anterior aspect of distal half right leg, and 3) distal half of left leg. NEURO: Gross sensation intact bilaterally. DERM: Multiple abscesses with surrounding erythema noted to legs bilaterally, drained - 1) posterior right calf; 2) anterior aspect of distal half right leg , and 3) distal half of right leg. No Serosanguinous drainage expressed from abscesses at this visit. Ulceration measuring approximately 6 cm x 4 cm noted to the medial aspect of left calf with mixed fibrogranular base and surrounding mixed hyper- and hypo-pigmentation periwound. Circular ulceration noted to proximal-anterior aspect of right leg measuring approximately 2.5 x 2.5 cm with mixed fibrogranular and surroudning hypopigmented/erythematous periwound - no purulence able to be expressed at this visit. ORTHO: Pain on palpation ulcerations and abscesses - Neurological Exam Neurological Exam: Alert, Awake, Oriented x3 - Psychiatric Exam Psychiatric exam: Normal Affect, Normal Mood Assessment and Plan - Assessment and Plan (Free Text) Assessment: 46 year old female patient POD#5 bilateral leg wound debridement with incision and drainage, excisional biopsy (DOS: 12/25/16) Plan: Patient seen and evaluated at bedside with attending, Dr. Ibarra Labs and vitals reviewed = afebrile, ESR 53, A1c 8.9 - Rheum Arthritis panel = negative - RPR = nonreactive - Hep B Antigen = negative - Hep C Ab = negative - HIV1Ab = nonreactive Remaining packing pulled from abscesses, flushed with sterile saline, and repacked with 1/4" plain packing Bilateral lower extremity dressed with Xeroform + DSD WBAT bilateral LE LLE XR reviewed: Negative for soft tissue emphysema, negative for acute fracture RLE XR reviewed: Negative for soft tissue emphysema, negative for acute fracture F/U Rheumatology consult, recs appreciated R/O autoimmune vasculitis, malignancy Awaiting RLE & LLE biospsy pathology RLE wound culture report (final) = no growth LLE wound culture report (final) = coagulase negative staph Continue abx per ID - Vancomycin, Zosyn Continue pain mgmt Podiatry will continue to follow patient while in house
--- NOTE | 2016-12-30 07:52 | CP.PCM.PN ---
Subjective - Date & Time of Evaluation Date of Evaluation: 12/30/16 Time of Evaluation: 06:50 - Subjective Subjective: General Surgery Pt S&E, NAEO. No new complaints. Podiatry team changing LE dressings Objective - Vital Signs/Intake and Output Vital Signs (last 24 hours): Temp Pulse Resp BP Pulse Ox 98.2 F 84 20 109/69 98 12/30/16 00:40 12/30/16 00:40 12/30/16 00:40 12/30/16 00:40 12/30/16 00:40 - Medications Medications: Current Medications Enoxaparin Sodium (Lovenox) 40 mg SC DAILY [facility] PRN Reason: Protocol Last Admin: 12/29/16 09:22 Dose: 40 mg Vancomycin HCl 1 gm/ Sodium (Chloride) 250 mls @ 166.667 mls/hr IVPB Q12 [facility] PRN Reason: Protocol Last Admin: 12/29/16 20:40 Dose: 166.667 mls/hr Piperacillin Sod/Tazobactam (Sod 4.5 gm/ Sodium Chloride) 100 mls @ 100 mls/hr IVPB Q8 [facility] PRN Reason: Protocol Last Admin: 12/30/16 00:06 Dose: 100 mls/hr Ibuprofen (Motrin Tab) 600 mg PO Q8H PRN PRN Reason: Pain, moderate (4-7) Last Admin: 12/28/16 13:13 Dose: 600 mg Ibuprofen (Motrin Tab) 800 mg PO Q8 PRN PRN Reason: Pain, Mild (1-3) Last Admin: 12/30/16 06:18 Dose: 800 mg Insulin Human Regular (Humulin R) 0 units SC ACCU-CHECK [facility] PRN Reason: Protocol Last Admin: 12/30/16 06:19 Dose: 2 units Ketoconazole (Nizoral) 1 applic TOP BID [facility] Last Admin: 12/29/16 17:10 Dose: 1 applic Metformin HCl (Glucophage) 1,000 mg PO BIDWM [facility] Last Admin: 12/29/16 17:04 Dose: 1,000 mg Pantoprazole Sodium (Protonix Ec Tab) 40 mg PO DAILY [facility] Last Admin: 12/29/16 09:23 Dose: 40 mg Pioglitazone HCl (Actos) 30 mg PO DAILY [facility] Last Admin: 12/29/16 09:21 Dose: 30 mg Prednisolone Acetate (Pred Forte 1% Opht Susp) 1 drop OS TID [facility] Last Admin: 12/29/16 17:11 Dose: 1 drop Silver Sulfadiazine (Silvadene 1% 50 Gm) 1 applic TOP BID [facility] Last Admin: 12/29/16 17:11 Dose: 1 applic Sitagliptin Phosphate (Januvia) 100 mg PO DAILY [facility] Last Admin: 12/29/16 09:22 Dose: 100 mg - Labs Labs: 12/29/16 05:35 12/29/16 05:35 PT 13.5 Seconds (9.8-13.1) H 12/24/16 21:45 INR 1.2 (0.9-1.2) 12/24/16 21:45 APTT 24.6 Seconds (25.6-37.1) L 12/24/16 21:45 - Constitutional Appears: Non-toxic, No Acute Distress - Head Exam Head Exam: ATRAUMATIC, NORMOCEPHALIC - Respiratory Exam Respiratory Exam: NORMAL BREATHING PATTERN. absent: Respiratory Distress - GI/Abdominal Exam GI & Abdominal Exam: Soft. absent: Distended - Extremities Exam Additional comments: LUE w/ gauze dressing CDI - Neurological Exam Neurological Exam: Alert, Awake - Skin Skin Exam: Dry, Warm Assessment and Plan - Assessment and Plan (Free Text) Assessment: 46 y/o female w/ multiple fungating skin lesions Plan: -F/U biopsy -Cont wound care as ordered -Further surgical recs pending pathology -May consider punch biopsy of new arm lesion if path inconclusive -D/W Dr. Betito Cordova PGY4
[2016-12-30 07:57] VITALS: BP 119/80; PULSE 91; RESP 19; TEMP 97.6; O2SAT 99
[2016-12-30] MEDS: Enoxaparin 40 mg Syringe SC SCH (08:33)
[2016-12-30] MEDS: Pantoprazole 40 mg EC Tab PO SCH (08:33)
[2016-12-30] MEDS: PrednisoLONE 1% OPTH SUSP OS SCH ×2 (08:33→14:07)
[2016-12-30] MEDS: Silver Sulfadiazine 1% CREAM (50 gm) TOP SCH (08:36)
[2016-12-30 09:09] LABS: HTLV-I-II AB W/REFL CONF Nonreactive (Nonreactive)
--- NOTE | 2016-12-30 10:57 | CP.PCM.PN ---
Subjective - Date & Time of Evaluation Date of Evaluation: 12/30/16 Time of Evaluation: 10:54 - Subjective Subjective: - 46 YO F s/p POD 5 blilateral leg wound debridment seen and examined with Dr. London at bedside. Patient appears to be doing well. No overnight events reported. Objective - Vital Signs/Intake and Output Vital Signs (last 24 hours): Temp Pulse Resp BP Pulse Ox 97.6 F 91 H 19 119/80 99 12/30/16 07:57 12/30/16 07:57 12/30/16 07:57 12/30/16 07:57 12/30/16 07:57 - Medications Medications: Current Medications Enoxaparin Sodium (Lovenox) 40 mg SC DAILY [facility] PRN Reason: Protocol Last Admin: 12/30/16 08:33 Dose: 40 mg Vancomycin HCl 1 gm/ Sodium (Chloride) 250 mls @ 166.667 mls/hr IVPB Q12 [facility] PRN Reason: Protocol Last Admin: 12/30/16 10:20 Dose: 166.667 mls/hr Piperacillin Sod/Tazobactam (Sod 4.5 gm/ Sodium Chloride) 100 mls @ 100 mls/hr IVPB Q8 [facility] PRN Reason: Protocol Last Admin: 12/30/16 08:34 Dose: 100 mls/hr Ibuprofen (Motrin Tab) 600 mg PO Q8H PRN PRN Reason: Pain, moderate (4-7) Last Admin: 12/28/16 13:13 Dose: 600 mg Ibuprofen (Motrin Tab) 800 mg PO Q8 PRN PRN Reason: Pain, Mild (1-3) Last Admin: 12/30/16 06:18 Dose: 800 mg Insulin Human Regular (Humulin R) 0 units SC ACCU-CHECK [facility] PRN Reason: Protocol Last Admin: 12/30/16 06:19 Dose: 2 units Ketoconazole (Nizoral) 1 applic TOP BID [facility] Last Admin: 12/30/16 08:36 Dose: 1 applic Metformin HCl (Glucophage) 1,000 mg PO BIDWM [facility] Last Admin: 12/30/16 08:33 Dose: 1,000 mg Pantoprazole Sodium (Protonix Ec Tab) 40 mg PO DAILY [facility] Last Admin: 12/30/16 08:33 Dose: 40 mg Pioglitazone HCl (Actos) 30 mg PO DAILY [facility] Last Admin: 12/30/16 08:33 Dose: 30 mg Prednisolone Acetate (Pred Forte 1% Opht Susp) 1 drop OS TID [facility] Last Admin: 12/30/16 08:33 Dose: 1 drop Silver Sulfadiazine (Silvadene 1% 50 Gm) 1 applic TOP BID [facility] Last Admin: 12/30/16 08:36 Dose: 1 applic Sitagliptin Phosphate (Januvia) 100 mg PO DAILY [facility] Last Admin: 12/30/16 08:33 Dose: 100 mg - Labs Labs: 12/29/16 05:35 12/29/16 05:35 PT 13.5 Seconds (9.8-13.1) H 12/24/16 21:45 INR 1.2 (0.9-1.2) 12/24/16 21:45 APTT 24.6 Seconds (25.6-37.1) L 12/24/16 21:45 - Constitutional Appears: No Acute Distress - Head Exam Head Exam: NORMAL INSPECTION - Respiratory Exam Respiratory Exam: Clear to Ausculation Bilateral, NORMAL BREATHING PATTERN. absent: Wheezes - Cardiovascular Exam Cardiovascular Exam: REGULAR RHYTHM, +S1, +S2 - GI/Abdominal Exam GI & Abdominal Exam: Soft. absent: Tenderness - Extremities Exam Additional comments: B/L dressing appears C/D/I - Neurological Exam Neurological Exam: Alert, Awake, CN II-XII Intact, Oriented x3 Assessment and Plan - Assessment and Plan (Free Text) Assessment: 1) B/L leg ulceration and abscess - POD #5 Bilateral leg wound debridement w/ incision and drainage, excisional biopsy. - F/U with Biopsy results - Rhematology on board - Rheum Arthritis panel = negative - RPR = nonreactive - Hep B Antigen = negative - Hep C Ab = negative - HIV1Ab = nonreactive - RLE wound culture report = no growth - LLE wound culture report = coagulase negative staph - Continue abx per ID - Vancomycin, Zosyn - ID on board - Derm consulted 2)DM2 metformin to 1000 bid januvia 100 mg daily and pioglitazone 30 mg daily
[2016-12-30] MEDS ORDERED: Lidocaine 1% Inj (20ml) IJ ONE (12:11)
[2016-12-30] MEDS ORDERED: Morphine 4 MG/ML VIAL IVP ONE (12:45)
--- NOTE | 2016-12-30 13:10 | CP.PCM.PN ---
Subjective - Date & Time of Evaluation Date of Evaluation: 12/30/16 Time of Evaluation: 12:30 - Subjective Subjective: PROCEDURE: Punch Biopsy of left upper arm Punch (Size 6mm) The area surrounding the skin lesion was prepared and draped in the usual sterile manner. The lesion was removed in the usual manner by the biopsy method noted above. Hemostasis was assured. The patient tolerated the procedure well. Closure: 4-0 Nylon suture x 2 interrupted sutures Followup: The patient tolerated the procedure well without complications. Standard post-procedure care was explained to patient in detail. Objective - Vital Signs/Intake and Output Vital Signs (last 24 hours): Temp Pulse Resp BP Pulse Ox 97.6 F 91 H 19 119/80 99 12/30/16 07:57 12/30/16 07:57 12/30/16 07:57 12/30/16 07:57 12/30/16 07:57 - Medications Medications: Current Medications Enoxaparin Sodium (Lovenox) 40 mg SC DAILY GRANT PRN Reason: Protocol Last Admin: 12/30/16 08:33 Dose: 40 mg Fluconazole (Diflucan) 100 mg PO DAILY GRANT PRN Reason: Protocol Vancomycin HCl 1 gm/ Sodium (Chloride) 250 mls @ 166.667 mls/hr IVPB Q12 GRANT PRN Reason: Protocol Last Admin: 12/30/16 10:20 Dose: 166.667 mls/hr Piperacillin Sod/Tazobactam (Sod 4.5 gm/ Sodium Chloride) 100 mls @ 100 mls/hr IVPB Q8 GRANT PRN Reason: Protocol Last Admin: 12/30/16 08:34 Dose: 100 mls/hr Ibuprofen (Motrin Tab) 600 mg PO Q8H PRN PRN Reason: Pain, moderate (4-7) Last Admin: 12/28/16 13:13 Dose: 600 mg Ibuprofen (Motrin Tab) 800 mg PO Q8 PRN PRN Reason: Pain, Mild (1-3) Last Admin: 12/30/16 06:18 Dose: 800 mg Insulin Human Regular (Humulin R) 0 units SC ACCU-CHECK GRANT PRN Reason: Protocol Last Admin: 12/30/16 06:19 Dose: 2 units Ketoconazole (Nizoral) 1 applic TOP BID [facility] Last Admin: 12/30/16 08:36 Dose: 1 applic Ketorolac Tromethamine (Toradol) 30 mg IVP ONCE ONE Stop: 12/30/16 12:56 Metformin HCl (Glucophage) 1,000 mg PO BIDWM [facility] Last Admin: 12/30/16 08:33 Dose: 1,000 mg Pantoprazole Sodium (Protonix Ec Tab) 40 mg PO DAILY [facility] Last Admin: 12/30/16 08:33 Dose: 40 mg Pioglitazone HCl (Actos) 30 mg PO DAILY [facility] Last Admin: 12/30/16 08:33 Dose: 30 mg Prednisolone Acetate (Pred Forte 1% Opht Susp) 1 drop OS TID [facility] Last Admin: 12/30/16 08:33 Dose: 1 drop Silver Sulfadiazine (Silvadene 1% 50 Gm) 1 applic TOP BID [facility] Last Admin: 12/30/16 08:36 Dose: 1 applic Sitagliptin Phosphate (Januvia) 100 mg PO DAILY [facility] Last Admin: 12/30/16 08:33 Dose: 100 mg - Labs Labs: 12/29/16 05:35 12/29/16 05:35 PT 13.5 Seconds (9.8-13.1) H 12/24/16 21:45 INR 1.2 (0.9-1.2) 12/24/16 21:45 APTT 24.6 Seconds (25.6-37.1) L 12/24/16 21:45 Assessment and Plan - Assessment and Plan (Free Text) Assessment: 46F w/ multiple skin lesions - Punch biopsy obtained -F/u pathology report -F/u with Dr. Cisse in office in about 1 week for removal of sutures -Further recs per Dr. Betito Snider PGY-2
--- NOTE | 2016-12-30 14:58 | CP.PCM.PCO ---
Assessment/Plan - Assessment/Plan Assessment (Free Text): Pt stable, seen and cleared for d/c to [facility] by podiatry and surgery residents. Per podiatry resident, Dr. Ibarra will follow pt in [facility]. Per Dr. Kearney, pt to continue IV abx x 9 more days from today. Pt seen and cleared for transfer to rehab by Dr. London. Pt stable for transfer to [facility]
--- NOTE | 2016-12-30 15:42 | CP.PCM.DIS ---
Provider - Provider Date of Admission: 12/24/16 17:13 Attending physician: Micky London MD Time Spent in preparation of Discharge (in minutes): 30 Diagnosis - Discharge Diagnosis (1) Abscess of left lower extremity Status: Acute Hospital Course - Lab Results Lab Results: Micro Results 12/24/16 15:30 Blood-Venous Blood Culture - Final NO GROWTH AFTER 5 DAYS 12/24/16 15:30 Blood-Venous Gram Stain - Final TEST NOT PERFORMED 12/24/16 15:30 Blood-Venous Blood Culture - Final NO GROWTH AFTER 5 DAYS 12/24/16 15:30 Blood-Venous Gram Stain - Final TEST NOT PERFORMED 12/26/16 10:33 Arm Left Fungal Culture - Preliminary Yeast Species 12/25/16 11:00 Leg - Right Gram Stain - Final 12/25/16 11:00 Leg - Right Wound Culture - Final No Growth 12/25/16 11:00 Leg - Right Gram Stain - Final 12/25/16 11:00 Leg - Right Wound Culture - Final No Growth 12/25/16 11:00 Leg - Left Gram Stain - Final 12/25/16 11:00 Leg - Left Wound Culture - Final Coagulase Neg Staphylococcus 12/25/16 11:00 Leg - Left Gram Stain - Final 12/25/16 11:00 Leg - Left Wound Culture - Final Coagulase Neg Staphylococcus Most Recent Lab Values WBC 4.5 K/uL (4.8-10.8) L 12/29/16 05:35 RBC 3.51 Mil/uL (3.80-5.20) L 12/29/16 05:35 Hgb 9.1 g/dL (12.0-16.0) L 12/29/16 05:35 Hct 28.7 % (34.0-47.0) L 12/29/16 05:35 MCV 81.9 fl (81.0-99.0) 12/29/16 05:35 MCH 25.8 pg (27.0-31.0) L 12/29/16 05:35 MCHC 31.6 g/dL (33.0-37.0) L 12/29/16 05:35 RDW 17.0 % (11.5-14.5) H 12/29/16 05:35 Plt Count 190 K/uL (130-400) 12/29/16 05:35 MPV 9.3 fl (7.2-11.7) 12/29/16 05:35 Neut % (Auto) 66.7 % (50.0-75.0) 12/29/16 05:35 Lymph % (Auto) 16.6 % (20.0-40.0) L 12/29/16 05:35 [place] % (Auto) 13.7 % (0.0-10.0) H 12/29/16 05:35 Eos % (Auto) 2.3 % (0.0-4.0) 12/29/16 05:35 Baso % (Auto) 0.7 % (0.0-2.0) 12/29/16 05:35 Neut # 3.0 K/uL (1.8-7.0) 12/29/16 05:35 Lymph # 0.7 K/uL (1.0-4.3) L 12/29/16 05:35 [place] # 0.6 K/uL (0.0-0.8) 12/29/16 05:35 Eos # 0.1 K/uL (0.0-0.7) 12/29/16 05:35 Baso # 0.0 K/uL (0.0-0.2) 12/29/16 05:35 ESR 53 mm/hr (0-20) H 12/25/16 05:20 PT 13.5 Seconds (9.8-13.1) H 12/24/16 21:45 INR 1.2 (0.9-1.2) 12/24/16 21:45 APTT 24.6 Seconds (25.6-37.1) L 12/24/16 21:45 pO2 22 mm/Hg (30-55) L 12/24/16 15:58 VBG pH 7.37 (7.32-7.43) 12/24/16 15:58 VBG pCO2 45 mmHg (40-60) 12/24/16 15:58 VBG HCO3 23.5 mmol/L 12/24/16 15:58 VBG Total CO2 27.4 mmol/L (22-28) 12/24/16 15:58 VBG O2 Sat (Calc) 37.4 % (40-65) L 12/24/16 15:58 VBG Base Excess 0.3 mmol/L (0.0-2.0) 12/24/16 15:58 VBG Potassium 4.0 mmol/L (3.6-5.2) 12/24/16 15:58 Sodium 138.0 mmol/L (132-148) 12/24/16 15:58 Chloride 107.0 mmol/L (98-107) 12/24/16 15:58 Glucose 149 mg/dL (65-105) H 12/24/16 15:58 Lactate 0.9 mmol/L (0.7-2.1) 12/24/16 15:58 FiO2 21.0 % 12/24/16 15:58 Sodium 141 mmol/l (132-148) 12/29/16 05:35 Potassium 3.7 MMOL/L (3.6-5.0) 12/29/16 05:35 Chloride 106 mmol/L (98-107) 12/29/16 05:35 Carbon Dioxide 27 mmol/L (22-30) 12/29/16 05:35 Anion Gap 12 (10-20) 12/29/16 05:35 BUN 9 mg/dl (7-17) 12/29/16 05:35 Creatinine 0.5 mg/dL (0.7-1.2) L 12/29/16 05:35 Est GFR ( Amer) > 60 12/29/16 05:35 Est GFR (Non-Af Amer) > 60 12/29/16 05:35 POC Glucose (mg/dL) 162 mg/dL (65-110) H 12/30/16 11:41 Random Glucose 146 mg/dL (65-105) H 12/29/16 05:35 Hemoglobin A1c 8.9 % (4.2-6.5) H 12/25/16 05:20 Calcium 8.5 mg/dL (8.4-10.2) 12/29/16 05:35 Total Bilirubin 0.6 mg/dl (0.2-1.3) 12/25/16 05:20 AST 22 U/L (14-36) 12/25/16 05:20 ALT 25 U/L (9-52) 12/25/16 05:20 Alkaline Phosphatase 72 U/L (38-126) 12/25/16 05:20 Total Protein 6.7 G/DL (6.3-8.2) 12/25/16 05:20 Albumin 3.5 g/dL (3.5-5.0) 12/25/16 05:20 Globulin 3.2 gm/dL (2.2-3.9) 12/25/16 05:20 Albumin/Globulin Ratio 1.1 (1.0-2.1) 12/25/16 05:20 Triglycerides 83 mg/DL (0-149) 12/25/16 05:20 Cholesterol 113 mg/dL (0-199) 12/25/16 05:20 LDL Cholesterol Direct 56 mg/dL (0-129) 12/25/16 05:20 HDL Cholesterol 32 MG/DL (30-70) 12/25/16 05:20 TSH 3rd Generation 2.01 mIU/ML (0.46-4.68) 12/25/16 05:20 Venous Blood Potassium 4.0 mmol/L (3.6-5.2) 12/24/16 15:58 Vancomycin Trough 7.8 ug/mL (5.0-10.0) 12/27/16 08:00 Rheum Arthritis Panel Negative (NEGATIVE) 12/25/16 20:30 BRIANNA Screen Positive (Negative) H 12/25/16 20:30 BRIANNA Titer 1:160 Titer (<1:40) H 12/25/16 20:30 BRIANNA Titer 2 TEST NOT PERFORMED 12/25/16 20:30 BRIANNA Pattern Homogeneous H 12/25/16 20:30 BRIANNA Pattern 2 TEST NOT PERFORMED 12/25/16 20:30 Proteinase 3 (PR3) <1.0 AI (<1.0) 12/26/16 13:10 Myeloperoxidase Ab <1.0 AI (<1.0) 12/26/16 13:10 RPR Nonreactive (NONREACTIVE) 12/26/16 13:10 Hep Bs Antigen Negative (NEGATIVE) 12/26/16 13:00 Hepatitis C Antibody Negative (NEGATIVE) 12/26/16 13:00 HIV-1 Ab Rapid Screen Non reactive (NON REAC) 12/26/16 13:10 HTLV I/II Antibody Nonreactive (Nonreactive) 12/26/16 13:00 TB Test (QFT) Nil 0.07 IU/mL 12/26/16 13:10 TB Test Mitogen - Nil 0.87 IU/mL 12/26/16 13:10 TB Test TB - Nil >10.00 IU/mL 12/26/16 13:10 TB Test (QFT) Positive (Negative) H 12/26/16 13:10 - Hospital Course Hospital Course: 46 YO F w/ PMH of DM and upper and lower extremity wounds since 2016. Patient was sent to the ER by Dr. Rico (podietry) for evaluation of wounds with worsening pin and drainage x 1 week. 1) B/L leg ulceration and abscess - POD #5 Bilateral leg wound debridement w/ incision and drainage, excisional biopsy. - F/U with Biopsy results - Rhematology on board - Rheum Arthritis panel = negative - RPR = nonreactive - Hep B Antigen = negative - Hep C Ab = negative - HIV1Ab = nonreactive - RLE wound culture report = no growth - LLE wound culture report = coagulase negative staph - Continue abx per ID - Vancomycin, Zosyn - ID on board - Derm consulted 2)DM2 metformin to 1000 bid januvia 100 mg daily and pioglitazone 30 mg daily Pt stable, seen and cleared for d/c to [facility] by podiatry and surgery residents. Per podiatry resident, Dr. Ibarra will follow pt in [facility]. Per Dr. Kearney, pt to continue IV abx x 9 more days from today. Pt seen and cleared for transfer to rehab by Dr. London. Pt stable for transfer to [facility] Discharge Exam - Head Exam Head Exam: NORMAL INSPECTION - Respiratory Exam Respiratory Exam: Clear to PA & Lateral, NORMAL BREATHING PATTERN. absent: Wheezes - Cardiovascular Exam Cardiovascular Exam: REGULAR RHYTHM, +S1, +S2 - GI/Abdominal Exam GI & Abdominal Exam: Normal Bowel Sounds, Soft. absent: Tenderness - Extremities Exam Additional comments: dressing c/d/i Discharge Plan - Discharge Medications Prescriptions: Piperacill/Tazo 4.5gm in NS [Zosyn 4.5 gm in NS 100ml] 4.5 gm IVPB Q8 #27 bag Vancomycin 1 GM [Vancomycin 1GM in Normal Saline Addvantage] 1 gm IVPB Q12 #18 bag - Follow Up Plan Condition: FAIR Disposition: HOME/ ROUTINE Instructions: Cellulitis (DC)
[2016-12-30 16:32] LABS: C. PNEUMONIAE IGM <1:10 (<1:10); C. PSITTACI IGM <1:10 (<1:10); C. TRACHOMATIS IGM <1:10 (<1:10)
[2016-12-30 17:07] LABS: C. PNEUMONIAE IGA <1:16 (<1:16); C. PSITTACI IGA <1:16 (<1:16); C. TRACHOMATIS IGA <1:16 (<1:16)
--- NOTE | 2016-12-31 06:33 | PQF GENQUE ---
This form is a permanent part of the medical record 12/30/16 Dr. Ibarra, The operative note includes the following documentation for procedure #1: --- Using a #15 blade, an excisional biopsy was taken from the ulcer base measuring roughly 0.5 x 0.3 cm and sent to Pathology for evaluation. Would you please clarify the Depth of the Biopsy: Muscle, Skin or Subcutaneous Tissue and Fascia in your notes. Clarification of your documentation is requested to better reflect the severity of illness and intensity of treatment of your patient. Indicators present [] Specify: [] [] Specify: [] [] Specify: [] [] Specify: [] Location in the medical record that reflects the above clinical findings: [] Treatment Provided: [] PHYSICIAN'S RESPONSE Depth of excisional biopsy of Right lower leg [] Muscle [] Skin [] Subcutaneous Tissue and Fascia [] Other explanation please specify Based on your medical judgment of the clinical indicators outlined above please clarify the following: [] Practitioner response [] If unable to determine, please check the box, sign and date. Present On Admission (POA) Indicator: [] Present at the time of admission [] Not present at the time of admission [] Clinically Undetermined In responding to this query, please exercise your independent professional judgment. The fact that a question is asked does not imply that any particular answer is desired or expected. Thank you for your clarification on this documentation. If you have any questions please call:extension [phone] * Thank you, Anamaria Gordon RN [facility]
== END 2016-12-30 16:05 | DRG 277 ==
LOC: H.ER 14:13 → H.ERHOLD 17:13 → H.MEDSURG1 19:30
PROVIDERS: ADMIT Family Medicine; ATTEND Family Medicine
PROC: 0JBN0ZX Excision of Right Lower Leg Subcutaneous Tissue and Fascia, Open Approach, Diagnostic (ICD-10-PCS; 2016-12-25)
PROC: 0J9P0ZX Drainage of Left Lower Leg Subcutaneous Tissue and Fascia, Open Approach, Diagnostic (ICD-10-PCS; 2016-12-25)
PROC: 0J9N0ZX Drainage of Right Lower Leg Subcutaneous Tissue and Fascia, Open Approach, Diagnostic (ICD-10-PCS; 2016-12-25)
PROC: 3E0234Z Introduction of Serum, Toxoid and Vaccine into Muscle, Percutaneous Approach (ICD-10-PCS; 2016-12-25)
PROC: 0JBP0ZX Excision of Left Lower Leg Subcutaneous Tissue and Fascia, Open Approach, Diagnostic (ICD-10-PCS; principal; 2016-12-25 09:30)
DX: L03.116 Cellulitis of left lower limb (principal); L97.929 Non-pressure chronic ulcer of unspecified part of left lower leg with unspecified severity; L97.919 Non-pressure chronic ulcer of unspecified part of right lower leg with unspecified severity; E11.622 Type 2 diabetes mellitus with other skin ulcer; E11.65 Type 2 diabetes mellitus with hyperglycemia; L02.416 Cutaneous abscess of left lower limb; L02.415 Cutaneous abscess of right lower limb; L88 Pyoderma gangrenosum; B95.7 Other staphylococcus as the cause of diseases classified elsewhere; I10 Essential (primary) hypertension; Z23 Encounter for immunization; Z79.84 Long term (current) use of oral hypoglycemic drugs